=== PATIENT | male | born 1955 | race Caucasian/White ===

== ENCOUNTER 2020-11-16 19:47 | Emergency (ER) | payer MEDICAID, SELFPAY ==
[2020-11-16 19:54] VITALS: PULSE 60; RESP 20; TEMP 36.9; O2SAT 94; BMI 45.1
--- NOTE | 2020-11-16 20:13 | W.ED.MALEGU ---
HPI - Male Genitourinary General: Chief complaint: Urogenital-Male Stated complaint: inability to urinate Time Seen by Provider: 11/16/20 20:03 History of Present Illness: HPI Narrative: Patient comes in saying no urine is come out his Kendall only had 20 mils and back was seen at [facility] Kendall was placed because of humphrey hematuria he is set up for TURP procedure up in [place] awaiting that appointment. Complaint: other (Urinary retention with Kendall in place) Onset (ago): hour(s) Review of Systems Narrative: Patient states his Kendall was not draining : Reports: other (Has a history of acute urinary retention has BPH and has a TURP appointment) [facility] ED PFSH: Medical History (Updated 11/16/20 @ 20:12 by MADHU Liang) CAD (coronary artery disease) CHF (congestive heart failure) Chronic obstructive pulmonary disease Generalized anxiety disorder Lower urinary tract symptoms (LUTS) Major depressive disorder, recurrent, moderate DEISI (obstructive sleep apnea) RLS (restless legs syndrome) Urinary incontinence Surgical History H/O hand surgery Family History Father Cancer Prostate Mother Cancer Lung Social History Smoking and tobacco status: former smoker Quit status (tobacco): has quit using tobacco Second hand smoke exposure: No Alcohol intake: never Lives independently: Yes Household members: spouse Marital status: service: No Pets and animals: Yes History of recent travel: No Current gender identity: Male Physical Exam Const: COMMON NORMALS: no acute distress : MALE GROIN/PERINEUM EXAM: Yes other (Patient has humphrey hematuria when I walked in room he had a full Kendall bag) OTHER: I suspect that he had a blood clot at the end of his catheter Psych: COMMON NORMALS: mental status grossly normal Course Vital Signs: Vital signs: Vital Signs Temperature 98.4 F 11/16/20 19:54 Pulse Rate 60 11/16/20 19:54 Respiratory Rate 20 H 11/16/20 19:54 Pulse Oximetry 94 11/16/20 19:54 MDM - Male MDM Narrative: Medical decision making narrative: Patient and instructed on how to flush Kendall follow-up with urologist as directed Discharge Plan Discharge Patient Disposition: Home Clinical Impression: Acute retention of urine Condition: Stable Prescriptions: No Action hydrocodone-acetaminophen [[place]acada] 10-325 mg tablet 1 tab PO Q4H PRNRF: 0 aspirin 81 mg tablet,delayed release (DR/EC) 81 mg PO DAILY RF: 0 ascorbic acid (vitamin C) 1,000 mg tablet 500 mg PO DAILY RF: 0 furosemide 40 mg tablet 40 mg PO BID RF: 0 lisinopril 20 mg tablet 20 mg PO DAILY RF: 0 carbidopa-levodopa [Sinemet] 10-100 mg tablet 1 tab PO DAILY RF: 0 omeprazole 20 mg capsule,delayed release(DR/EC) 20 mg PO DAILY RF: 0 celecoxib [Celebrex] 200 mg capsule 200 mg PO BID PRN (Reason: pain) RF: 0 albuterol sulfate [Ventolin HFA] 90 mcg/actuation HFA aerosol inhaler 2 puff INHALATION Q6H PRNRF: 0 carvedilol 25 mg tablet 25 mg PO BID RF: 0 potassium chloride 10 mEq capsule, extended release 10 meq PO DAILY RF: 0 levalbuterol tartrate [Xopenex HFA] 45 mcg/actuation HFA aerosol inhaler 2 inh INHALATION Q4H PRN (Reason: shortness of breath or wheezing) RF: 0 tamsulosin 0.4 mg capsule 0.8 mg PO DAILY RF: 0 fluticasone propion-salmeterol [Advair Diskus] 500-50 mcg/dose blister with device 1 inh INHALATION BID RF: 0 albuterol sulfate 2.5 mg /3 mL (0.083 %) solution for nebulization 2.5 mg INHALATION Q6H PRN (Reason: shortness of breath or wheezing) 30 Days Qty: 360 RF: 3 duloxetine [Cymbalta] 60 mg capsule,delayed release(DR/EC) 60 mg PO .AM Qty: 30 RF: 2 duloxetine [Cymbalta] 30 mg capsule,delayed release(DR/EC) 30 mg PO .AM Qty: 30 RF: 2 alprazolam [Xanax] 1 mg tablet 1 mg PO QID PRN (Reason: anxiety) Qty: 120 RF: 2 tiotropium bromide [Spiriva with HandiHaler] 18 mcg capsule, w/inhalation device See Rx Instructions .ROUTE .COMPLEX Qty: 30 RF: 3 Discharge Orders: Discharge ED (Routine); Ordered 11/16/20 Ordered By: Rm Segundo Referrals: Colten Barrientos [Primary Care Provider] - Discharge Diet: Usual diet Discharge Activity: Resume usual activity Patient Instructions: Kendall Catheter Placement and Care (ED) Activity Restrictions/Additional Instructions: Irrigate catheter as needed with syringe and normal saline or water. Keep area clean. Keep appointment [place] for your consult on your procedure. Coding Level of Care Code ED Inside Outside Sales Representative for Raul Tate
[2020-11-16 20:28] VITALS: BP 146/76; PULSE 60; O2SAT 96
[2020-11-16 20:36] VITALS: BP 146/76; PULSE 62; O2SAT 96
== END 2020-11-16 20:48 | disposition home or self-care (01) ==
PROVIDERS: Emergency Provider Nurse Practitioner Family; PCP Physician Assistant Medical
DX: R33.9 Retention of urine, unspecified (principal); Z79.82 Long term (current) use of aspirin; I25.10 Atherosclerotic heart disease of native coronary artery without angina pectoris; I50.9 Heart failure, unspecified; Z87.891 Personal history of nicotine dependence
CPT/HCPCS: 12345; 99283

== ENCOUNTER → 2020-12-25 15:02 | Outpatient (BNVA) | payer MEDICAID, SELFPAY | PROVIDERS: PCP Physician Assistant Medical; Visit Provider Urology | DX: R39.9 Unspecified symptoms and signs involving the genitourinary system (principal); R33.8 Other retention of urine; N39.0 Urinary tract infection, site not specified | CPT/HCPCS: 87077; 87086; 87184; 88112 ==

== ENCOUNTER 2025-04-17 08:13 | Inpatient (IN) | payer MEDICARE, MEDICAID, SELFPAY ==
[2025-04-17] VITALS (19 sets, daily range): BP systolic 143–204; BP diastolic 79–141; PULSE 67–92; RESP 18–28; TEMP 36.7; O2SAT 88–99
--- NOTE | 2025-04-17 08:28 | XRR_ITS ---
PROCEDURE INFORMATION: Exam: XR Chest Exam date and time: 04/17/2025 8:34 AM Age: 70 years old Clinical indication: Cough and dyspnea; Fall 8 days ago has broken RT shoulder; Additional info: Dyspnea/cough TECHNIQUE: Imaging protocol: Radiologic exam of the chest. Views: 1 view. COMPARISON: DX XR chest 2V* [id number] 04/15/2025 9:48 PM FINDINGS: Lungs: Slightly increased pulmonary vascular congestion with diffuse bilateral pulmonary edema. Otherwise, unremarkable. Pleural spaces: Unremarkable. No pleural effusion. No pneumothorax. Heart/Mediastinum: Increased moderate cardiomegaly. Bones/joints: Right humeral head and neck fracture. Nothing else acute. No change. XR/XR chest 1V portable [id number] IMPRESSION: 1. Right humeral head and neck fracture. 2. Increased moderate cardiomegaly. 3. Slightly increased pulmonary vascular congestion with diffuse bilateral pulmonary edema.
--- NOTE | 2025-04-17 08:28 | XRR_ITS ---
PROCEDURE INFORMATION: Exam: XR Right Humerus Exam date and time: 04/17/2025 8:39 AM Age: 70 years old Clinical indication: Injury or trauma; Blunt trauma (contusions or hematomas); Arm, upper; Right; Injury date: Fall 8 days ago TECHNIQUE: Imaging protocol: Radiologic exam of the right humerus. Views: 2 or more views. COMPARISON: [place] [id number] 04/15/2025 10:28 PM FINDINGS: Bones/joints: Comminuted, impacted, and displaced fracture right humeral head and neck. Slightly increased displacement. Otherwise, unremarkable. Soft tissues: Normal. XR/[place] [id number] IMPRESSION: Comminuted, impacted, and displaced fracture right humeral head and neck. Slightly increased displacement.
--- NOTE | 2025-04-17 08:32 | ECG_ITS ---
[facility]: [facility]25-[facility]-17 Pat Name: Woodrow Mcguire Department: Room: Gender: Male Roll Forger: : 1955 Requested By: Don Broussard Order Number: [id number] Rosa Maria MD: Stevie Dominguez M.D. Measurements Intervals [place] Rate: 73 P: 75 VA: 149 QRS: 180 QRSD: 157 T: 24 QT: 407 QTc: 450 Interpretive Statements SINUS RHYTHM RIGHT BUNDLE BRANCH BLOCK AND POSSIBLE RIGHT VENTRICULAR HYPERTROPHY [RBBB, 1.5 mV R IN V1, RAD] LEFT POSTERIOR FASCICULAR BLOCK [QRS AXIS > 109, INFERIOR Q] MARKED T-WAVE ABNORMALITY, CONSIDER ANTEROLATERAL ISCHEMIA [-0.5+ mV T-WAVE IN I/aVL/V3-V6] No previous ECG available for comparison Electronically Signed On 04-17-2025 17:45:09 CDT by Stevie Dominguez M.D. [id number]
--- NOTE | 2025-04-17 08:35 | W.ED.EXTPRO ---
HPI - Extremity Problem General: Chief complaint: Extremity Injury, Upper Stated complaint: Fall, RT Arm Pain Time Seen by Provider: 04/17/25 08:28 History of Present Illness: 62-year-old male presents to the emergency room planing of right arm pain and swelling. He fell 8 days ago he was seen at [facility] and they told him it was fractured. He has a follow-up appointment with Ortho clinic here at [facility] but he is not sure when it is or how to get there. He did not fall again. He is chronically oxygen. He is complaining of persistent pain in the right upper arm is a large amount of bruising denies chest or abdominal pain denies any other injury at the time of fall. Associated symptoms: Deny chest pain, fever(s) or rash Related Data Home Medications ?Medication ?Instructions ?Recorded ?Confirmed albuterol sulfate 90 mcg/actuation 2 puff inhalation Q6H PRN 06/19/20 04/17/25 aerosol inhaler (Ventolin HFA) Shortness Of Breath ascorbic acid (vitamin C) 1,000 mg 1,000 mg PO DAILY 06/19/20 04/17/25 tablet aspirin 81 mg tablet,delayed 81 mg PO DAILY 06/19/20 04/17/25 release carbidopa 10 mg-levodopa 100 mg 1 tab PO DAILY 06/19/20 04/17/25 tablet (Sinemet) carvedilol 25 mg tablet 25 mg PO BID 06/19/20 04/17/25 furosemide 40 mg tablet 40 mg PO BID 06/19/20 04/17/25 lisinopril 20 mg tablet 20 mg PO DAILY 06/19/20 04/17/25 omeprazole 20 mg capsule,delayed 20 mg PO DAILY 06/19/20 04/17/25 release potassium chloride 10 mEq 10 meq PO DAILY 06/19/20 04/17/25 capsule,extended release tamsulosin 0.4 mg capsule 0.4 mg PO DAILY 06/19/20 04/17/25 alprazolam 1 mg tablet (Xanax) 1 mg PO .3-4XDAILY PRN anxiety 04/17/25 04/17/25 clobetasol 0.05 % scalp solution See Rx Instructions .Route .COMPLEX 04/17/25 04/17/25 gabapentin 100 mg capsule 100 mg PO DAILY 04/17/25 04/17/25 hydrocodone 10 mg-acetaminophen 1 tab PO Q4H PRN Pain, Moderate 04/17/25 04/17/25 325 mg tablet naloxone 4 mg/actuation nasal spray See Rx Instructions .Route .COMPLEX 04/17/25 04/17/25 Previous Rx's ?Medication ?Instructions ?Recorded duloxetine 30 mg capsule,delayed 30 mg PO .AM #30 caps 05/09/24 release (Cymbalta) duloxetine 60 mg capsule,delayed 60 mg PO .AM #30 caps 05/09/24 release (Cymbalta) Allergies Allergy/AdvReac Type Severity Reaction Status Date / Time No Known Allergies Allergy Verified 06/19/20 14:22 Review of Systems Const: Denies: fever(s) or chills Card: Denies: chest pain Resp: Denies: dyspnea GI: Denies: abdominal pain : Denies: dysuria, urinary frequency or urinary urgency Musc: Denies: neck pain or back pain Skin/Breast: Denies: rash PFSH ED PFSH: Medical History Chronic use of benzodiazepine for therapeutic purpose Psychiatric care Morbid obesity Incomplete bladder emptying Recurrent UTI Lower urinary tract symptoms (LUTS) DEISI (obstructive sleep apnea) Chronic obstructive pulmonary disease CAD (coronary artery disease) RLS (restless legs syndrome) CHF (congestive heart failure) Urinary incontinence Generalized anxiety disorder Major depressive disorder, recurrent, moderate Surgical History H/O hand surgery Family History Father Cancer Prostate Mother Cancer Lung Social History Smoking and tobacco/nicotine status: former use of tobacco/nicotine Quit status (tobacco/nicotine): has quit using Second hand smoke exposure: No Alcohol intake: never Substance/Drug Use: never Lives independently: Yes Household members: spouse Marital status: service: No Pets and animals: Yes Do you think of yourself as: Straight/Heterosexual Current gender identity: Male Physical Exam Const: GENERAL APPEARANCE: cooperative ORIENTATION/CONSCIOUSNESS: Yes awake HENMT: COMMON NORMALS: normocephalic and atraumatic HEAD & SCALP: normocephalic and atraumatic Resp: EFFORT & INSPECTION: Yes tachypneic, Yes labored and Yes grunting AUSCULTATION: crackles Cardio: COMMON NORMALS: regular rate, regular rhythm and No murmurs present (Cardio) RATE: regular rate RHYTHM: regular rhythm GI: COMMON NORMALS: Soft to palpation and No hepatosplenomegaly present AUSCULTATION: Yes normoactive bowel sounds PALPATION: Yes Soft to palpation, No Tenderness to palpation present (GI), No Guarding due to palpation present (GI) and Yes No hepatosplenomegaly present Extremity: COMMON NORMALS: normal to inspection, capillary refill normal, no clubbing, cyanosis or edema, no calf tenderness and no pedal edema Skin: COMMON NORMALS: no rashes or lesions noted GENERAL SKIN EXAM: no rashes or lesions noted Course Vital Signs: Vital signs: Vital Signs Temperature 98.1 F 04/17/25 08:14 Pulse Rate 72 04/17/25 12:20 Respiratory Rate 23 H 04/17/25 09:27 Blood Pressure 189/105 04/17/25 12:14 Pulse Oximetry 93 04/17/25 12:20 Oxygen Delivery Me thod BiPAP 04/17/25 09:27 Oxygen Flow Rate 2 04/17/25 08:14 Fraction of Inspir ed Oxygen 30 04/17/25 12:20 MDM - Extremity (Nontraumatic) Medical Decision Making Acute on chronic hypercapnic and hypoxic respiratory failure with congestive heart failure patient started on BiPAP diuresed he is encephalopathic from his hypercapnia at times had to be redirected was even threatening violence at times believe it was due to his encephalopathy from his hypercapnia. We were able with the assistance of family members and friends of his able to redirect him will admit. Discussed with hospitalist orders written. EKG shows sinus rhythm right bundle branch block no acute ST changes noted. Inverted T waves in V1 through V5 Medical Records I reviewed the patient's medical records. Lab Data I reviewed the patient's lab results. 04/17/25 08:28 04/17/25 08:28 Radiology Impressions Chest X-Ray 04/17/25 08:28 IMPRESSION: 1. Right humeral head and neck fracture. 2. Increased moderate cardiomegaly. 3. Slightly increased pulmonary vascular congestion with diffuse bilateral pulmonary edema. Humerus X-Ray 04/17/25 08:28 IMPRESSION: Comminuted, impacted, and displaced fracture right humeral head and neck. Slightly increased displacement. Laboratory Results WBC 7.20 10^3/uL (3.29-11.43) 04/17/25 08: RBC 4.62 10^6/uL (3.85-5.65) 04/17/25 08: Hgb 14.30 g/dL (11.27-16.99) 04/17/25 08: Hct 47.3 % (37-53) 04/17/25 08: MCV 102.4 fl (82-101) H 04/17/25 08: MCH 31.0 pg (27-33) 04/17/25 08: MCHC 30.2 g/dL (30-55) 04/17/25 08: RDW 14.4 % (12.1-15.1) 04/17/25 08: Plt Count 167 10^3/cmm (157-399) 04/17/25 08: MPV 10.7 fL (7.4-10.4) H 04/17/25 08:28 Neut % (Auto) 79.7 % 04/17/25 08: Lymph % (Auto) 9.4 % 04/17/25 08: [place] % (Auto) 8.3 % 04/17/25 08: Eos % (Auto) 1.9 % 04/17/25 08: Baso % (Auto) 0.3 % 04/17/25 08: Neut # (Auto) 5.73 10^3/uL (1.8-7.7) 04/17/25 08: Lymph # (Auto) 0.7 10^3/uL (0.8-4.8) L 04/17/25 08: [place] # (Auto) 0.6 10^3/uL (0.2-0.9) 04/17/25 08: Eos # (Auto) 0.1 10^3/uL (0.0-0.8) 04/17/25 08: Baso # (Auto) 0.0 10^3/uL (0.0-0.1) 04/17/25 08: Nucleated RBC % (auto) 0 % 04/17/25 08:28 Nucleated RBCs # 0.0 /100WBC 04/17/25 08:28 Specimen Type Arterial 04/17/25 08:54 Sample Site Radial, left 04/17/25 08:54 ABG pH 7.34 (7.35-7.45) L 04/17/25 08:54 ABG pCO2 76.5 mmHg (35-45) H* 04/17/25 08:54 ABG pO2 82.7 mmHg (80.0-100.0) 04/17/25 08:54 ABG PO2/FiO2 Ratio 295 04/17/25 08:54 ABG HCO3 41.3 mmol/L (22-26) H 04/17/25 08:54 ABG O2 Saturation 96.2 04/17/25 08:54 ABG Base Excess 11.8 mmol/L (-2.0-2.0) H 04/17/25 08:54 Eliud Test Pos 04/17/25 08:54 A-a O2 Gradient 2.9 mmHg (5-10) L 04/17/25 08:54 Hematocrit 44.1 % (42-52) 04/17/25 08:54 Hgb O2 Saturation 93.9 % (95-100) L 04/17/25 08:54 Carboxyhemoglobin 2.4 %THgb (0.4-20.1) 04/17/25 08:54 Methemoglobin 0.0 % (0.4-1.5) L 04/17/25 08:54 Total Hemoglobin 14.4 g/dL (14-18) 04/17/25 08:54 Sodium 140.0 mmol/L (131-143) 04/17/25 08:54 Potassium 4.4 mmol/L (3.5-5.0) 04/17/25 08:54 Glucose 100.0 mg/dL (70-115) 04/17/25 08:54 Ionized Calcium 1.2 mmol/L (1.1-1.4) 04/17/25 08:54 O2 Delivery Device Nc 04/17/25 08:54 O2 Liters/Min 2.0 % 04/17/25 08:54 FiO2 28.0 % 04/17/25 08:54 Food Counselor ID Gd 04/17/25 08:54 Sodium 139 mmol/L (136-145) 04/17/25 08:28 Potassium 4.7 mmol/L (3.5-5.1) 04/17/25 08: Chloride 95 mmol/L (98-107) L 04/17/25 08: Carbon Dioxide 37 mmol/L (22-29) H 04/17/25 08: Anion Gap 11.7 (5-19) 04/17/25 08: BUN 17 mg/dL (8-23) 04/17/25 08: Creatinine 0.6 mg/dL (0.7-1.2) L 04/17/25 08: GFR Calculation 134.0 mL/min (90-130) H 04/17/25 08: Glucose 99 mg/dL (65-115) 04/17/25: Calculated Osmolality 290 mOsm/kg (285-295) 04/17/25: Calcium 8.7 mg/dL (8.5-10.5) 04/17/25: Total Bilirubin 1.1 mg/dL (0.15-1.2) 04/17/25: AST 18 U/L (0-40) 04/17/25: ALT 10 U/L (0-41) 04/17/25 08: Alkaline Phosphatase 65 U/L (40-130) 04/17/25: Creatine Kinase 45 U/L (39-308) 04/17/25 08: Troponin T Baseline 17 ng/L (0-15) H 04/17/25 08: Total Protein 6.5 g/dL (6.6-8.7) L 04/17/25: Albumin 3.6 g/dL (3.5-5.2) 04/17/25 08: Globulin 2.9 g/dL (1.3-4.6) 04/17/25 08: Urine Color Dark yellow (Yellow) A 04/17/25 09:00 Urine Appearance Clear (CLEAR) 04/17/25 09:00 Urine pH 7.5 (5-7) 04/17/25 09:00 Ur Specific [place] 1.027 (1.005-1.030) 04/17/25 09:00 Urine Protein 1+ (Negative) A 04/17/25 09:00 Urine Glucose (UA) Negative (Normal) 04/17/25 09:00 Urine Ketones 2+ (Negative) H 04/17/25 09:00 Urine Blood Negative (Negative) 04/17/25 09:00 Urine Nitrate Negative (Negative) 04/17/25 09:00 Urine Bilirubin Negative (Negative) 04/17/25 09:00 Urine Urobilinogen 1.0 mg/dL (Negative) 04/17/25 09:00 Ur Leukocyte Esterase 1+ (Negative) A 04/17/25 09:00 Urine RBC 0-2 /hpf (0-2) 04/17/25 09:00 Urine WBC 21-50 /hpf (0-5) H 04/17/25 09:00 Ur Squamous Epith Cells 0-5 /hpf (0-5) 04/17/25 09:00 Amorphous Sediment Not Reportable 04/17/25 09:00 Urine Bacteria None seen /hpf (NONE) 04/17/25 09:00 Hyaline Casts 0-4 /lpf H 04/17/25 09:00 All radiology interpretation(s) finalized by discharge Discharge Plan Discharge Patient Disposition: Admitted As Inpatient Admit Provider: Leonidas Sotelo Clinical Impression: Acute respiratory failure with hypoxia and hypercapnia, CHF (congestive heart failure), DEISI (obstructive sleep apnea) Condition: Stable Coding Level of Care Code ED Director Equipment for Raul Tate
[2025-04-17 08:36] LABS: Basophils % 0.3 %; Eosinophils # 0.1 10^3/uL (0.0-0.8); Eosinophils % 1.9 %; Hematocrit 47.3 % (37-53); Lymphocytes # 0.7 10^3/uL (0.8-4.8); Lymphocytes % 9.4 %; Mean Corpuscular HGB Conc 30.2 g/dL (30-55); Mean Corpuscular Volume 102.4 fl (82-101); Mean Platelet Volume 10.7 fL (7.4-10.4); Monocytes # 0.6 10^3/uL (0.2-0.9); Monocytes % 8.3 %; Neutrophils # 5.73 10^3/uL (1.8-7.7); Neutrophils % 79.7 %; Nucleated Red Blood Cells % 0 %; Platelet Count 167 10^3/cmm (157-399); Red Blood Count 4.62 10^6/uL (3.85-5.65); Red Cell Distribution Width 14.4 % (12.1-15.1)
[2025-04-17 08:52] LABS: Troponin(5th) Baseline 17 ng/L (0-15)
[2025-04-17 08:57] LABS: Alanine Aminotransferase 10 U/L (0-41); Albumin Level 3.6 g/dL (3.5-5.2); Alkaline Phosphatase 65 U/L (40-130); Aspartate Amino Transferase 18 U/L (0-40); Blood Urea Nitrogen 17 mg/dL (8-23); Calcium 8.7 mg/dL (8.5-10.5); Carbon Dioxide 37 mmol/L (22-29); Chloride 95 mmol/L (98-107); Creatine Phosphokinase 45 U/L (39-308); Globulin 2.9 g/dL (1.3-4.6); Glucose 99 mg/dL (65-115); Osmolality Calculated 290 mOsm/kg (285-295); Sodium 139 mmol/L (136-145); Total Bilirubin 1.1 mg/dL (0.15-1.2); Total Protein 6.5 g/dL (6.6-8.7)
[2025-04-17 08:58] LABS: Anion Gap 11.7 (5-19); Potassium 4.7 mmol/L (3.5-5.1)
[2025-04-17 09:09] LABS: ABG PH Result 7.34 (7.35-7.45); Alveolar-Arterial Oxygen Gradi 2.9 mmHg (5-10); Arterial Blood Gas Hematocrit 44.1 % (42-52); Base Excess ABG 11.8 mmol/L (-2.0-2.0); Blood Gas Allen Test Pos; Blood Gas Operator Identificat GD; Blood Gas Sample Site Radial, left; Blood Gas Sample Type Arterial; Carboxyhemoglobin 2.4 %THgb (0.4-20.1); HCO3 ABG 41.3 mmol/L (22-26); HGB O2 Sat 93.9 % (95-100); Ionized Calcium Level - ABG 1.2 mmol/L (1.1-1.4); Oxygen Device NC; Oxygen Saturation ABG 96.2; PO2 ABG 82.7 mmHg (80.0-100.0); PO2 FiO2 Ratio Arterial Blood 295; Potassium Level - ABG 4.4 mmol/L (3.5-5.0); Total Hemoglobin 14.4 g/dL (14-18)
[2025-04-17 09:12] LABS: ABG PCO2 76.5 mmHg (35-45)
[2025-04-17] MEDS: ipratropium-albuterol 3 mL Neb INHALATION (09:26)
--- NOTE | 2025-04-17 09:26 | PC.PHAR ---
Pt states he is unsure what medications he takes. [facility] is faxing current med list 04/17/25 9:27am
[2025-04-17] MEDS: methylPREDNISolone sod succ 125 mg/2 mL INJ IVP (09:29)
[2025-04-17 09:30] LABS: Bilirubin Urine Negative (Negative); Blood Urine Negative (Negative); Glucose Urine UA Negative (Normal); Ketones Urine 2+ (Negative); Leukocyte Esterase Urine 1+ (Negative); Nitrate Urine Negative (Negative); Protein Urine 1+ (Negative); Specific Gravity, Urine 1.027 (1.005-1.030); Urine Appearance Clear (CLEAR); Urine Color Dark Yellow (Yellow); pH Urine 7.5 (5-7)
[2025-04-17] MEDS: LORazepam 1 MG/0.5 ML injection IVP (09:31)
[2025-04-17 09:32] LABS: Add Urine Microscopic? YES; Bacteria Urine None Seen /hpf; Hyaline Casts Urine 0-4 /lpf; RBC Urine 0-2 /hpf (0-2); Squamous Epithelial Cell Urine 0-5 /hpf (0-5); WBC Urine 21-50 /hpf (0-5)
[2025-04-17] MEDS: FUROsemide 10 mg/mL SDV 10mL 60 MG IVP (09:32)
[2025-04-17 09:49] LABS: Add Urine Culture? Yes
--- NOTE | 2025-04-17 10:06 | PC.PHAR ---
According to [facility]-pt has a poor history of picking up Sinement 10-100, Carvedilol 25mg, Lasix 40mg and Duloxetine 30mg and 60mg. Last fill dates and day supply added in pharmacy notes.
--- NOTE | 2025-04-17 10:28 | ECG_ITS ---
[facility] Test Date: 2025-04-17 Pat Name: Woodrow Mcguire Department: Room: [facility] Gender: Male Hide And Skin Colerer: : 1955 Requested By: Don Broussard Order Number: [id number] Reading MD: Stevie Dominguez M.D. Measurements Intervals [place] Rate: 71 P: 41 VT: 141 QRS: 173 QRSD: 154 T: 23 QT: 419 QTc: 458 Interpretive Statements SINUS RHYTHM RIGHT BUNDLE BRANCH BLOCK AND POSSIBLE RIGHT VENTRICULAR HYPERTROPHY [RBBB, 1.5 mV R IN V1, RAD] LEFT POSTERIOR FASCICULAR BLOCK [QRS AXIS > 109, INFERIOR Q] MARKED T-WAVE ABNORMALITY, CONSIDER ANTEROLATERAL ISCHEMIA [-0.5+ mV T-WAVE IN I/aVL/V3-V6] Compared to ECG 04/17/2025 08:32:25 No significant changes Electronically Signed On 04-17-2025 17:48:57 CDT by Stevie Dominguez M.D. [id number]
--- NOTE | 2025-04-17 11:00 | PC.NURSE ---
PT BEING LOUD AND CURSING AT STAFF. PT REQUESTING TO LEAVE MULTIPLE TIMES. PT STATES I DIDNT COME TO STAY I WANT TO GO HOME. DR. HOLLAND NOTIFIED OF BEHAVIOR.
[2025-04-17 11:07] LABS: Troponin 5 2HR 15.71 ng/L (0-15)
[2025-04-17 11:08] LABS: Troponin 5 2HR Delta -1.29 ABS# (0-10)
--- NOTE | 2025-04-17 12:11 | PC.NURSE ---
PT YELLING AND CUSSING, NURSE ENTERED ROOM. PT STATES I'M ABOUT TO START BREAKING SHIT BECAUSE I WANT OUT OF HERE! NURSE ASKED IF PT HAD SOMEONE THAT COULD PICK HIM UP, PT STATES YES, MY ! NURSE ASKED PT'S NAME, , CURRENT YEAR, PLACE, AND WHO PRESIDENT IS. PT ANSWERED ALL QUESTIONS CORRECTLY. DR. HOLLAND NOTIFIED THAT PT WANTS TO LEAVE AMA.
[2025-04-17] MEDS: LORazepam 1 MG/0.5 ML injection 2 MG IVP (12:41)
--- NOTE | 2025-04-17 14:28 | ECG_ITS ---
[facility] Date: 2025-04[facility]17 Pat Name: Woodrow Mcguire Department: Room: [facility] Gender: Male Bobbin Coil Winder: : 1955 Requested By: Don Broussard Order Number: [id number] Rosa Maria MD: Stevie Dominguez M.D. Measurements Intervals [place] Rate: 72 P: 72 TN: 151 QRS: 187 QRSD: 156 T: 5 QT: 428 QTc: 470 Interpretive Statements SINUS RHYTHM RIGHT AXIS DEVIATION [QRS AXIS > 100] RIGHT BUNDLE BRANCH BLOCK AND POSSIBLE RIGHT VENTRICULAR HYPERTROPHY [RBBB, 1.5 mV R IN V1, RAD] MARKED T-WAVE ABNORMALITY, CONSIDER ANTEROLATERAL ISCHEMIA [-0.5+ mV T-WAVE IN I/aVL/V3-V6] Compared to ECG 04/17/2025 10:22:29 Right-axis deviation now present Left posterior fascicular block no longer present T-wave abnormality still present Possible ischemia still present Electronically Signed On 04-17-2025 17:47:44 CDT by Stevie Dominguez M.D. [email or web address] [id number]
--- NOTE | 2025-04-17 15:01 | PM.HP ---
Providers/Chief Complaint Admitting Physician: Leonidas Sotelo Primary Care Provider: Nina Stokes MD Chief Complaint: Fall, RT Arm Pain History of Present Illness Woodrow Mcguire is a 70 year old male with a history of COPD and congestive heart failure presented after a recent fall 8 days ago resulting in arm pain and a confirmed broken bone in the arm. The patient was recently released from a hospital in [place] and has been disoriented since then. In ED here his initial complaint was arm pain but he was found to be short of breath and retaining carbon dioxide, with evidence of exacerbation of COPD and congestive heart failure. The patient uses a nasal cannula for oxygen, typically around the clock, and has a portable oxygen unit. There is no report of fever, chills, or increased cough. Has a history of chronic stasis in the legs. 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 He has a history of being non-cooperative and sometimes leaves the hospital against medical advice. He has not been adherent with home respiratory therapies (CPAP/BiPAP) and possibly medications. Mental status changes are noted, likely related to carbon dioxide retention and acidosis. A plan had been made for orthopedic follow-up for the arm fracture on prior hospitalization. He has been having pain but has not been wearing his arm sling. In ER he was initially sterted on BiPAP support afterfinding of lethargy, confusion and hypercapneic respiratory acidosis. The patient is currently full code, with a preference for short-term interventions if needed. 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 Two brothers from methamphetamine-related causes. No regular substance use reported. Review of Systems General: Reports: ROS unobtainable due to mental status Narrative: Somnolent after received Ativan. Medications/Allergies Home Medications ?Medication ?Instructions ?Recorded ?Confirmed ?Last Taken ?Type albuterol sulfate 90 mcg/actuation 2 puff inhalation Q6H PRN 06/19/20 04/17/25 04/16/25 History aerosol inhaler (Ventolin HFA) Shortness Of Breath ascorbic acid (vitamin C) 1,000 mg 1,000 mg PO DAILY 06/19/20 04/17/25 Unknown History tablet aspirin 81 mg tablet,delayed 81 mg PO DAILY 06/19/20 04/17/25 04/17/25 History release carbidopa 10 mg-levodopa 100 mg 1 tab PO DAILY 06/19/20 04/17/25 Unknown History tablet (Sinemet) carvedilol 25 mg tablet 25 mg PO BID 06/19/20 04/17/25 Unknown History furosemide 40 mg tablet 40 mg PO BID 06/19/20 04/17/25 Unknown History lisinopril 20 mg tablet 20 mg PO DAILY 06/19/20 04/17/25 04/17/25 History omeprazole 20 mg capsule,delayed 20 mg PO DAILY 06/19/20 04/17/25 04/17/25 History release potassium chloride 10 mEq 10 meq PO DAILY 06/19/20 04/17/25 04/17/25 History capsule,extended release tamsulosin 0.4 mg capsule 0.4 mg PO DAILY 06/19/20 04/17/25 04/17/25 History duloxetine 30 mg capsule,delayed 30 mg PO .AM #30 caps 05/09/24 04/17/25 Unknown Rx release (Cymbalta) duloxetine 60 mg capsule,delayed 60 mg PO .AM #30 caps 05/09/24 04/17/25 Unknown Rx release (Cymbalta) alprazolam 1 mg tablet (Xanax) 1 mg PO .3-4XDAILY PRN anxiety 04/17/25 04/17/25 04/17/25 History clobetasol 0.05 % scalp solution See Rx Instructions .Route .COMPLEX 04/17/25 04/17/25 Unknown History gabapentin 100 mg capsule 100 mg PO DAILY 04/17/25 04/17/25 04/16/25 History hydrocodone 10 mg-acetaminophen 1 tab PO Q4H PRN Pain, Moderate 04/17/25 04/17/25 04/17/25 History 325 mg tablet naloxone 4 mg/actuation nasal spray See Rx Instructions .Route .COMPLEX 04/17/25 04/17/25 Unknown History Allergies Allergy/AdvReac Type Severity Reaction Status Date / Time No Known Allergies Allergy Verified 06/19/20 14:22 PFSH Acute PFSH: Medical History Chronic use of benzodiazepine for therapeutic purpose Psychiatric care Morbid obesity Incomplete bladder emptying Recurrent UTI Lower urinary tract symptoms (LUTS) DEISI (obstructive sleep apnea) Chronic obstructive pulmonary disease CAD (coronary artery disease) RLS (restless legs syndrome) CHF (congestive heart failure) Urinary incontinence Generalized anxiety disorder Major depressive disorder, recurrent, moderate Surgical History H/O hand surgery Family History Father Cancer Prostate Mother Cancer Lung Social History Smoking and tobacco/nicotine status: former use of tobacco/nicotine Quit status (tobacco/nicotine): has quit using Second hand smoke exposure: No Alcohol intake: never Substance/Drug Use: never Lives independently: Yes Household members: spouse Marital status: service: No Pets and animals: Yes Do you think of yourself as: Straight/Heterosexual Current gender identity: Male Vitals/I&O/Wt Last Vital Signs Temp 98.1 F 04/17/25 08:14 Pulse 72 04/17/25 12:20 Resp 23 H 04/17/25 09:27 BP 189/105 04/17/25 12:14 Pulse Ox 93 04/17/25 12:20 O2 Del Method BiPAP 04/17/25 09:27 O2 Flow Rate 2 04/17/25 08:14 FiO2 30 04/17/25 12:20 Weight last 48 hrs Weight 129.274 kg Physical Exam Narrative: Accompanied by his brother at bedside. Const: GENERAL APPEARANCE: cooperative NUTRITIONAL APPEARANCE: obese ORIENTATION/CONSCIOUSNESS: Yes awake and Yes lethargic OTHER: Waking up to loud voice and painful stimuli. HENMT: COMMON NORMALS: oropharynx normal Neck/C-Spine: COMMON NORMALS: no JVD Resp: COMMON NORMALS: normal respiratory effort and clear to auscultation bilaterally AUSCULTATION: clear to auscultation bilaterally Cardio: COMMON NORMALS: no JVD, regular rhythm, S1 normal heart sound present, S2 normal heart sound present and No murmurs present (Cardio) RHYTHM: regular rhythm HEART SOUNDS: S1 normal heart sound present and S2 normal heart sound present GI: COMMON NORMALS: Normal to inspection, nondistended, normoactive bowel sounds present, Soft to palpation and non-tender PALPATION: Yes Soft to palpation Extremity: COMMON NORMALS: no joint enlargement Neuro: COMMON NORMALS: moves all extremities SENSORIUM/ORIENTATION: Yes alert Skin: COMMON NORMALS: no rashes or lesions noted GENERAL SKIN EXAM: no rashes or lesions noted Data 04/17/25 08:28 04/17/25 08:28 A&P Assessment and plan (1) Acute respiratory failure with hypoxia and hypercapnia: Acute respiratory failure with hypercapnia, acute metabolic encephalopathy due to hypercapnia, requiring BiPAP support in ER. Reviewed vitals, CBC, CMP, UA, troponin, EKG, chest x-ray, ER provider note, discussed with ER provider. Severe COPD exacerbation with hypercapnia. With dyspnea, hypercapnic encephalopathy, respiratory acidosis, productive cough. Patient with known COPD. Non-compliance with CPAP/BiPAP and concern for medications as well. Oxygen therapy is ongoing, so far came off BiPAP, on nasal cannula oxygen. Requesting target saturation of 88-92% to avoid worsening hypercapnia. Initial admission to intensive care unit. - Continue oxygen therapy, titrate to maintain saturation 88-92% - Administer IV corticosteroids (e.g., methylprednisolone), monitor for risk of worsening encephalopathy, hypertension, hypercapnia, hyperglycemia, gastritis. - Provide breathing treatments scheduled and as needed with DuoNeb - Collect sputum culture Acute congestive heart failure exacerbation, type unknown : History of CHF with current evidence of fluid overload contributing to respiratory compromise. With hypercapnia, dyspnea, moderate cardiomegaly on chest x-ray, slightly increased pulmonary vascular congestion with diffuse bilateral pulmonary edema. Mild swelling in legs noted. - Administer IV diuretics (e.g., furosemide), received a dose in the ED, continue 40 mg IV twice daily, reassess volume status, electrolytes, monitor for risk of electrolyte deficiency with IV diuresis. Monitor for risk of RAKESH. Reassess chemistry. - Monitor fluid status and response to therapy (2) Right humeral fracture: Was not wearing his sling, sling and been replaced in ER, but not wearing his sling currently. Appears peripherally uncomfortable for him. Noted mildly displaced comminuted fracture of the proximal right humerus. Bruising and swelling of proximal right arm and chest. Pending orthopedic consultation. Plan Acute metabolic encephalopathy: Acute metabolic encephalopathy with hypercapnic encephalopathy, with exacerbation of COPD, CHF, as well as possible UTI. Treat as above and below. Initial admission to ICU. Assess UDS. UTI: Possible UTI. Ceftriaxone. Follow-up urine culture. 21-50 WBC. PDMP PDMP Reviewed: Not Reviewed Attestations Medical Necessity Statement*: Admission of over 2 midnights anticipated for assessment management of acute respiratory failure with hypercapnia, acute metabolic encephalopathy, possible UTI in a gentleman with right humeral fracture. Coding Level of Care Code Critical Care >/= 30 minutes Critical care time (in minutes): 35 The high probability of a clinically significant, sudden or life threatening deterioration, as referenced in this documentation, required my full and direct attention, intervention and personal management. The critical care time shown is in addition to time spent performing any reported separately billable procedures and includes the following: [x] Data and vital sign review and interpretation [x] Patient assessment, examination and intervention [x] Medication orders and management [x] Patient/Family updates as able [x] Care Coordination and Documentation. Diagnoses Acute respiratory failure with hypoxia and hypercapnia J96.01; J96.02 Right humeral fracture S42.301A
[2025-04-17 15:13] LABS: Troponin 5 6HR 12.09 ng/L (0-15)
[2025-04-17 15:14] LABS: Troponin 5 6HR Delta -4.91 ng/L (0-12)
--- NOTE | 2025-04-17 16:13 | PC.NURSE ---
Arrived from ED, transferred to bed with slide board
[2025-04-17] MEDS: cefTRIAXone 1,000 mg SDV 1000 MG IVP (17:09)
[2025-04-17] MEDS: enoxaparin 40 mg/0.4 mL Syringe SUBCUT (17:09)
[2025-04-17] MEDS: methylPREDNISolone sod succ 40 mg/mL INJ IVP ×2 (17:09→23:30)
--- NOTE | 2025-04-17 17:52 | PM.CONSULT ---
Providers/Reason For Consult Consulting Physician/Specialty*: Hospitalist Reason for Consult*: Right proximal humerus fracture Attending Physician: Leonidas Sotelo Primary Care Provider: Nnia Stokes MD History of Present Illness History of Present Illness Woodrow Mcguire is a 70 year old male sustained a right nondisplaced proximal humerus fracture currently in the ICU. He is on oxygen tried to awaken him he was breathing and snoring did not awaken when we tried to shake his feet. Review of Systems General: Reports: ROS unobtainable due to mental status Narrative: Patient has bruising around the right shoulder. Medications/Allergies Home Medications ?Medication ?Instructions ?Recorded ?Confirmed ?Last Taken ?Type albuterol sulfate 90 mcg/actuation 2 puff inhalation Q6H PRN 06/19/20 04/17/25 04/16/25 History aerosol inhaler (Ventolin HFA) Shortness Of Breath ascorbic acid (vitamin C) 1,000 mg 1,000 mg PO DAILY 06/19/20 04/17/25 Unknown History tablet aspirin 81 mg tablet,delayed 81 mg PO DAILY 06/19/20 04/17/25 04/17/25 History release carbidopa 10 mg-levodopa 100 mg 1 tab PO DAILY 06/19/20 04/17/25 Unknown History tablet (Sinemet) carvedilol 25 mg tablet 25 mg PO BID 06/19/20 04/17/25 Unknown History furosemide 40 mg tablet 40 mg PO BID 06/19/20 04/17/25 Unknown History lisinopril 20 mg tablet 20 mg PO DAILY 06/19/20 04/17/25 04/17/25 History omeprazole 20 mg capsule,delayed 20 mg PO DAILY 06/19/20 04/17/25 04/17/25 History release potassium chloride 10 mEq 10 meq PO DAILY 06/19/20 04/17/25 04/17/25 History capsule,extended release tamsulosin 0.4 mg capsule 0.4 mg PO DAILY 06/19/20 04/17/25 04/17/25 History duloxetine 30 mg capsule,delayed 30 mg PO .AM #30 caps 05/09/24 04/17/25 Unknown Rx release (Cymbalta) duloxetine 60 mg capsule,delayed 60 mg PO .AM #30 caps 05/09/24 04/17/25 Unknown Rx release (Cymbalta) alprazolam 1 mg tablet (Xanax) 1 mg PO .3-4XDAILY PRN anxiety 04/17/25 04/17/25 04/17/25 History clobetasol 0.05 % scalp solution See Rx Instructions .Route .COMPLEX 04/17/25 04/17/25 Unknown History gabapentin 100 mg capsule 100 mg PO DAILY 04/17/25 04/17/25 04/16/25 History hydrocodone 10 mg-acetaminophen 1 tab PO Q4H PRN Pain, Moderate 04/17/25 04/17/25 04/17/25 History 325 mg tablet naloxone 4 mg/actuation nasal spray See Rx Instructions .Route .COMPLEX 04/17/25 04/17/25 Unknown History Allergies Allergy/AdvReac Type Severity Reaction Status Date / Time No Known Allergies Allergy Verified 06/19/20 14:22 Current Medications Generic Name Dose Route Start Last Admin Trade Name Freq PRN Reason Stop Dose Admin Enoxaparin Sodium 40 mg 04/17/25 16:30 04/17/25 17:09 Enoxaparin 40 Mg/0.4 Ml Syringe SUBCUT 40 mg Q24H MANNY Administration Methylprednisolone Sodium Succinate 40 mg 04/17/25 16:30 04/17/25 17:09 Methylprednisolone Sod Succ 40 Mg/Ml Inj IVP 40 mg Q6H MANNY Administration PFSH Acute PFSH: Medical History Chronic use of benzodiazepine for therapeutic purpose Psychiatric care Morbid obesity Incomplete bladder emptying Recurrent UTI Lower urinary tract symptoms (LUTS) DEISI (obstructive sleep apnea) Chronic obstructive pulmonary disease CAD (coronary artery disease) RLS (restless legs syndrome) CHF (congestive heart failure) Urinary incontinence Generalized anxiety disorder Major depressive disorder, recurrent, moderate Surgical History H/O hand surgery Family History Father Cancer Prostate Mother Cancer Lung Social History Smoking and tobacco/nicotine status: former use of tobacco/nicotine Quit status (tobacco/nicotine): has quit using Second hand smoke exposure: No Alcohol intake: never Substance/Drug Use: never Lives independently: Yes Household members: spouse Marital status: service: No Pets and animals: Yes Do you think of yourself as: Straight/Heterosexual Current gender identity: Male Vitals/I&O/Wt Last Vital Signs Temp 98.1 F 04/17/25 08:14 Pulse 72 04/17/25 16:25 Resp 28 H 04/17/25 16:25 BP 173/101 04/17/25 16:25 Pulse Ox 91 04/17/25 16:25 O2 Del Method Nasal Cannula 04/17/25 16:16 O2 Flow Rate 4 04/17/25 16:16 FiO2 30 04/17/25 12:20 Weight last 48 hrs Weight 277 lb Weight 285 lb Physical Exam Narrative: Patient has bruising around the right shoulder otherwise patient was snoring was not arousable. Data 04/17/25 08:28 04/17/25 08:28 A&P Assessment and plan (1) Right humeral fracture: Patient has a right nondisplaced proximal humerus fracture Follow-up Ortho clinic in 2 weeks Sling for comfort PDMP PDMP Reviewed: Not Reviewed Coding Level of Care Code Acute Code for Chg Fwd Diagnoses Other closed nondisplaced fracture of proximal end of right humerus, initial encounter S42.294A Encounter type: initial encounter Humerus Location: proximal Fracture type: closed Fracture alignment: nondisplaced Fracture morphology: other fracture
--- NOTE | 2025-04-17 19:51 | PC.NURSE ---
NPO Patient demanding something to eat, but has existing NPO order. Patient had history of aggression warranting Ativan administration in emergency department and is very demanding in ICU. Currently on Bipap, but was saturating well on nasal cannula prior. Mental status has improved. Contacted Dr Stevenson regarding patient's wish to eat. Received order to allow patient to eat something for supper and to watch saturations closely while eating and for 30 minutes prior.
[2025-04-17 20:16] LABS: Amphetamines Screen Urine Positive (Negative); Barbiturates Screen Urine Negative (Negative); Benzodiazepines Screen Urine Negative (Negative); Cocaine Screen Urine Negative (Negative); Opiate Screen Urine Positive (Negative); PCP Screen Urine Negative (Negative); THC Screen Urine Negative (Negative)
[2025-04-17] MEDS: HYDROcodone-acetaminophen 10-325 mg Tablet 1 TAB PO (21:56)
[2025-04-18] VITALS (37 sets, daily range): BP systolic 120–182; BP diastolic 67–122; PULSE 62–81; RESP 14–24; TEMP 36–36.7; O2SAT 83–99
[2025-04-18] MEDS: ipratropium-albuterol 3 mL Neb INHALATION (01:01)
[2025-04-18 03:14] LABS: Hematocrit 43.5 % (37-53); Lymphocytes # 0.4 10^3/uL (0.8-4.8); Lymphocytes % 7.7 %; Mean Corpuscular HGB Conc 30.8 g/dL (30-55); Mean Corpuscular Hemoglobin 30.3 pg (27-33); Mean Corpuscular Volume 98.4 fl (82-101); Mean Platelet Volume 10.7 fL (7.4-10.4); Monocytes # 0.3 10^3/uL (0.2-0.9); Monocytes % 6.3 %; Neutrophils # 4.32 10^3/uL (1.8-7.7); Neutrophils % 85.6 %; Nucleated Red Blood Cells % 0 %; Platelet Count 165 10^3/cmm (157-399); Red Blood Count 4.42 10^6/uL (3.85-5.65); Red Cell Distribution Width 14.2 % (12.1-15.1); White Blood Count 5.05 10^3/uL (3.29-11.43)
[2025-04-18 03:41] LABS: Alanine Aminotransferase 15 U/L (0-41); Albumin Level 2.9 g/dL (3.5-5.2); Alkaline Phosphatase 61 U/L (40-130); Anion Gap 10.2 (5-19); Aspartate Amino Transferase 25 U/L (0-40); Blood Urea Nitrogen 25 mg/dL (8-23); Calcium 8.6 mg/dL (8.5-10.5); Carbon Dioxide 38 mmol/L (22-29); Chloride 95 mmol/L (98-107); Creatinine Clr Calc Pharmacy 110.6725; Globulin 3.1 g/dL (1.3-4.6); Glucose 173 mg/dL (65-115); Osmolality Calculated 297 mOsm/kg (285-295); Potassium 4.2 mmol/L (3.5-5.1); Sodium 139 mmol/L (136-145); Total Bilirubin 0.8 mg/dL (0.15-1.2)
[2025-04-18] MEDS: methylPREDNISolone sod succ 40 mg/mL INJ IVP ×4 (05:38→23:18)
[2025-04-18] MEDS: duloxetine 30 mg Capsule PO (06:12)
[2025-04-18] MEDS: tamsulosin 0.4 mg Capsule PO (08:34)
[2025-04-18] MEDS: cefTRIAXone 1,000 mg SDV 1000 MG IVP (08:34)
[2025-04-18] MEDS: pantoprazole DR 40 mg Tablet PO (08:34)
[2025-04-18] MEDS: aspirin 81 mg EC Tablet PO (08:34)
[2025-04-18] MEDS: HYDROcodone-acetaminophen 10-325 mg Tablet 1 TAB PO ×3 (08:34→18:37)
--- NOTE | 2025-04-18 13:57 | P.PN_ITS ---
Subjective 2 Subjective: She is feeling significantly better today in terms of his breathing. He is also awake and alert. He states he has limited recollection of his assessment at outside hospital previously were he was assessed by after his fall. Confirmed with him regarding fracture of the proximal right humerus. Discussed with him also regarding acute encephalopathy on presentation yesterday with hypercapnic encephalopathy and respiratory failure. Vitals/I&O/Wt Last Vital Signs Temp 97.6 F 04/18/25 12:00 Pulse 65 04/18/25 12:00 Resp 17 04/18/25 12:00 BP 182/92 04/18/25 12:00 Pulse Ox 97 04/18/25 12:00 O2 Del Method Nasal Cannula 04/18/25 12:00 O2 Flow Rate 4 04/18/25 09:12 FiO2 35 04/18/25 03:53 04/17/25 04/18/25 04/18/25 22:59 06:59 14:59 Intake Total 600 / 600 0 / 600 360 / 360 Output Total 500 / 500 1000 / 1000 Balance 100 / 100 0 / 100 -640 / -640 Weight last 48 hrs Weight 127.459 kg Weight 125.645 kg Weight 129.274 kg Physical Exam 2 Narrative: Accompanied by his brother at bedside. Const: COMMON NORMALS: patient oriented x3 and alert GENERAL APPEARANCE: c ooperative and lethargic NUTRITIONAL APPEARANCE: obese O RIENTATION/CONSCIOUSNESS: Yes awake and Yes lethargic OTHER: Waking up to loud voice and painful stimuli. HENMT: COMMON NORMALS: oropharynx normal Neck/C-Spine: COMMON NORMALS: no JVD Resp: COMMON NORMALS: normal respiratory effort and clear to auscultation bilaterally AUSCULTATION: clear to auscultation bilaterally Cardio: COMMON NORMALS: no JVD, regular rhythm, S1 normal heart sound present, S2 normal heart sound present and No murmurs present (Cardio) RHYTHM: regular rhythm HEART SOUNDS: S1 normal heart sound present and S2 normal heart sound present GI: COMMON NORMALS: Normal to inspection, nondistended, normoactive bowel sounds present, Soft to palpation and non-tender PALPATION: Yes Soft to palpation Extremity: COMMON NORMALS: no joint enlargement and no pedal edema Neuro: COMMON NORMALS: patient oriented x3 and moves all extremities S ENSORIUM/ORIENTATION: Yes alert and Yes lethargic Skin: COMMON NORMALS: no rashes or lesions noted GENERAL SKIN EXAM: no rashes or lesions noted Data 04/18/25 02:56 04/18/25 02:56 Micro: Microbiology 04/17/25 09:00 Urine Culture - Preliminary Urine,Clean Catch A&P Assessment and plan (1) Acute respiratory failure with hypoxia and hypercapnia: Respiratory failure resolved. This morning still with hypoxia requiring 5 L, but able to wean down on oxygen requirement to about 3 L. Discussed with him and his brother as well as nursing staff, avoid hyperoxia, target oxygen saturation 88-92%. Discussed with him also to avoid any substance use that may affect his mental status, think usually take over the outside. Reviewed vitals, CBC, CMP. Severe COPD exacerbation with hypercapnia. With dyspnea, hypercapnic encephalopathy, respiratory acidosis, productive cough. Patient with known COPD. Non-compliance with CPAP/BiPAP and concern for medications as well. Oxygen therapy is ongoing, so far came off BiPAP, on nasal cannula oxygen. Requesting target saturation of 88-92% to avoid worsening hypercapnia. Initial admission to intensive care unit. - Continue oxygen therapy, titrate to maintain saturation 88-92% - Continue IV corticosteroids (e.g., methylprednisolone), monitor for risk of worsening encephalopathy, hypertension, hypercapnia, hyperglycemia, gastritis. - Provide breathing treatments scheduled and as needed with DuoNeb - Collect sputum culture Discussed with nursing and classification case manager. Acute congestive heart failure exacerbation, type unknown : Reviewed intake and output and chemistry. History of CHF with current evidence of fluid overload contributing to respiratory compromise. With hypercapnia, dyspnea, moderate cardiomegaly on chest x-ray, slightly increased pulmonary vascular congestion with diffuse bilateral pulmonary edema. Mild swelling in legs noted. -Continue IV diuretics (e.g., furosemide), received a dose in the ED, continue 40 mg IV twice daily, reassess volume status, electrolytes, monitor for risk of electrolyte deficiency with IV diuresis. Monitor for risk of RAKESH. Reassess chemistry. - Monitor fluid status and response to therapy (2) Right humeral fracture: Reviewed orthopedic note, discussed with Dr. George, discussed with him and his brother will need follow-up in office in 2 weeks, wear sling in the meantime. Was not wearing his sling, sling and been replaced in ER, but not wearing his sling currently. Appears peripherally uncomfortable for him. Noted mildly displaced comminuted fracture of the proximal right humerus. Bruising and swelling of proximal right arm and chest. Pending orthopedic consultation. Plan Acute metabolic encephalopathy: Resolved. He is awake and alert, pleasant, conversant. Oriented. Responding appropriately. Acute metabolic encephalopathy with hypercapnic encephalopathy, with exacerbation of COPD, CHF, as well as possible UTI. Treat as above and below. Initial admission to ICU. Assess UDS. Functional decline: Per discussion with him and his brother during the visit, he has been in for increased risk of fall recently per his brother, is unclear how he fell to cause fracture to his arm, has been having some difficulties with getting around due to the fracture while living at home by himself. Requesting PT, OT assessment. Discussed with case management. Per discussion with him and his brother he would be agreeable to go to SNF if this would benefit him. UTI: Possible UTI. Ceftriaxone. Follow-up urine culture. 21-50 WBC. Methamphetamine use: UDS positive for amphetamine. Discussed with him, he states that he intermittently uses methamphetamine by smoking. Denies any injection use. Discussed with him risks of methamphetamine use including cardiovascular events, encephalopathy, that may lead to respiratory decompensation and other complications. He verbalized understanding, intention to abstain from future use. PDMP PDMP Reviewed: Not Reviewed Attestations 2 Medical Necessity Statement*: Continue admission for assessment management of COPD exacerbation, CHF, functional assessment recently with fall, humeral fracture and a gentleman with functional decline, living by himself. Diagnoses Acute respiratory failure with hypoxia and hypercapnia J96.01; J96.02 Other closed nondisplaced fracture of proximal end of right humerus, initial encounter S42.294A Encounter type: initial encounter Humerus Location: proximal Fracture type: closed Fracture morphology: other fracture Fracture alignment: nondisplaced
[2025-04-18] MEDS: lisinopril 20 mg Tablet PO (15:29)
[2025-04-18] MEDS: FUROsemide 10 mg/mL SDV 4mL 40 MG IVP (15:29)
[2025-04-18] MEDS: gabapentin 100 mg Capsule PO (15:29)
[2025-04-18] MEDS: enoxaparin 40 mg/0.4 mL Syringe SUBCUT (15:30)
[2025-04-19] VITALS (31 sets, daily range): BP systolic 138–187; BP diastolic 69–125; PULSE 60–79; RESP 13–26; TEMP 36.6–36.8; O2SAT 90–97; BMI 45.1
[2025-04-19] MEDS: HYDROcodone-acetaminophen 10-325 mg Tablet 1 TAB PO ×5 (00:31→20:35)
[2025-04-19 05:18] LABS: Hematocrit 42.5 % (37-53); Lymphocytes # 0.3 10^3/uL (0.8-4.8); Lymphocytes % 3.3 %; Mean Corpuscular HGB Conc 30.6 g/dL (30-55); Mean Corpuscular Hemoglobin 30.6 pg (27-33); Mean Platelet Volume 10.7 fL (7.4-10.4); Monocytes # 0.4 10^3/uL (0.2-0.9); Monocytes % 3.9 %; Neutrophils # 9.12 10^3/uL (1.8-7.7); Neutrophils % 92.1 %; Nucleated Red Blood Cells % 0 %; Platelet Count 187 10^3/cmm (157-399); Red Blood Count 4.25 10^6/uL (3.85-5.65); Red Cell Distribution Width 14.3 % (12.1-15.1); White Blood Count 9.91 10^3/uL (3.29-11.43)
[2025-04-19] MEDS: FUROsemide 10 mg/mL SDV 4mL 40 MG IVP ×2 (05:21→15:26)
[2025-04-19] MEDS: methylPREDNISolone sod succ 40 mg/mL INJ IVP ×2 (05:21→10:46)
[2025-04-19] MEDS: duloxetine 30 mg Capsule PO (05:22)
[2025-04-19 05:38] LABS: Anion Gap 7.1 (5-19); Blood Urea Nitrogen 23 mg/dL (8-23); Calcium 8.6 mg/dL (8.5-10.5); Chloride 98 mmol/L (98-107); Glucose 192 mg/dL (65-115); Osmolality Calculated 303 mOsm/kg (285-295); Potassium 4.1 mmol/L (3.5-5.1); Sodium 142 mmol/L (136-145)
[2025-04-19 06:01] LABS: Carbon Dioxide 41 mmol/L (22-29)
[2025-04-19] MEDS: ipratropium-albuterol 3 mL Neb INHALATION ×3 (08:21→19:32)
[2025-04-19] MEDS: aspirin 81 mg EC Tablet PO (08:28)
[2025-04-19] MEDS: gabapentin 100 mg Capsule PO (08:28)
[2025-04-19] MEDS: cefTRIAXone 1,000 mg SDV 1000 MG IVP (08:28)
[2025-04-19] MEDS: lisinopril 20 mg Tablet PO (08:28)
[2025-04-19] MEDS: pantoprazole DR 40 mg Tablet PO (08:28)
[2025-04-19] MEDS: tamsulosin 0.4 mg Capsule PO (08:28)
--- NOTE | 2025-04-19 11:13 | P.PN_ITS ---
Subjective 2 Subjective: Reports he is doing all right today. Breathing has been improving. He worked with PT and OT. Vitals/I&O/Wt Last Vital Signs Temp 98.0 F 04/19/25 08:00 Pulse 60 04/19/25 08:21 Resp 16 04/19/25 08:21 BP 187/93 04/19/25 08:00 Pulse Ox 95 04/19/25 08:21 O2 Del Method Nasal Cannula 04/19/25 08:21 O2 Flow Rate 4 04/19/25 08:21 FiO2 35 04/18/25 03:53 04/18/25 04/19/25 04/19/25 22:59 06:59 14:59 Intake Total 240 / 960 480 / 1440 480 / 480 Output Total 1400 / 2400 500 / 2900 1350 / 1350 Balance -1160 / -1440 -20 / -1460 -870 / -870 Weight last 48 hrs Weight 127.006 kg Weight 127.459 kg Weight 125.645 kg Physical Exam 2 Const: COMMON NORMALS: patient oriented x3 and alert GENERAL APPEARANCE: c ooperative ORIENTATION/CONSCIOUSNESS: Yes awake HENMT: COMMON NORMALS: oropharynx normal Neck/C-Spine: COMMON NORMALS: no JVD Resp: COMMON NORMALS: normal respiratory effort and clear to auscultation bilaterally AUSCULTATION: clear to auscultation bilaterally Cardio: COMMON NORMALS: no JVD, regular rhythm, S1 normal heart sound present, S2 normal heart sound present and No murmurs present (Cardio) RHYTHM: regular rhythm HEART SOUNDS: S1 normal heart sound present and S2 normal heart sound present GI: COMMON NORMALS: Normal to inspection, nondistended, normoactive bowel sounds present, Soft to palpation and non-tender PALPATION: Yes Soft to palpation Extremity: COMMON NORMALS: no joint enlargement and no pedal edema Neuro: COMMON NORMALS: patient oriented x3 and moves all extremities S ENSORIUM/ORIENTATION: Yes alert Skin: COMMON NORMALS: no rashes or lesions noted GENERAL SKIN EXAM: no rashes or lesions noted Data 04/19/25 04:48 04/19/25 04:48 Micro: Microbiology 04/17/25 09:00 Urine Culture - Preliminary Urine,Clean Catch A&P Assessment and plan (1) Acute respiratory failure with hypoxia and hypercapnia: Continue to improve with resolved dyspnea. On 4 L nasal Oxygen. Continue to wean down as tolerated. Reviewed vitals, CBC, chemistry. Discussed with nursing, caseworker intake. Severe COPD exacerbation with hypercapnia. With dyspnea, hypercapnic encephalopathy, respiratory acidosis, productive cough. Patient with known COPD. Non-compliance with CPAP/BiPAP and concern for medications as well. Oxygen therapy is ongoing, so far came off BiPAP, on nasal cannula oxygen. Requesting target saturation of 88-92% to avoid worsening hypercapnia. Initial admission to intensive care unit. - Continue oxygen therapy, titrate to maintain saturation 88-92% - Decrease dose of IV corticosteroids (e.g., methylprednisolone) down to 20 mg every 6 hours, monitor for risk of worsening encephalopathy, hypertension, hypercapnia, hyperglycemia, gastritis. - Provide breathing treatments scheduled and as needed with DuoNeb - Collect sputum culture if provide a sample Acute congestive heart failure exacerbation, type unknown : Getting closer to euvolemia. Continue diuresis. Reassess volume status. Reviewed intake and output and chemistry. Potassium is okay. Check magnesium as well. Recheck chemistry. History of CHF with current evidence of fluid overload contributing to respiratory compromise. With hypercapnia, dyspnea, moderate cardiomegaly on chest x-ray, slightly increased pulmonary vascular congestion with diffuse bilateral pulmonary edema. Mild swelling in legs -Continue IV diuretics (e.g., furosemide), received a dose in the ED, continue 40 mg IV twice daily, reassess volume status, electrolytes, monitor for risk of electrolyte deficiency with IV diuresis. Monitor for risk of RAKESH. Reassess chemistry. - Monitor fluid status and response to therapy (2) Right humeral fracture: Reviewed orthopedic note, discussed with orthopedics. Follow-up in office in 2 weeks, wear sling in the meantime. Has worked with orthopedics. Quad cane provided. Has not managed well at home, family very concerned about him now having more difficulty with arm fracture, with requirement for continuous oxygen. Plan Acute metabolic encephalopathy: Resolved. Functional decline: Per discussion with him and his brother during the visit, he has been in for increased risk of fall recently per his brother, is unclear how he fell to cause fracture to his arm, has been having some difficulties with getting around due to the fracture while living at home by himself. Arrangements underway for longterm admission. UTI: Reviewed urine culture, without growth. Methamphetamine use: Reinforced with him avoidance of amphetamine use. PDMP PDMP Reviewed: Not Reviewed Attestations 2 Medical Necessity Statement*: Continue admission for assessment management of COPD exacerbation, CHF, functional assessment recently with fall, humeral fracture, disposition planning in a gentleman with functional decline, living by himself. Diagnoses Acute respiratory failure with hypoxia and hypercapnia J96.01; J96.02 Other closed nondisplaced fracture of proximal end of right humerus, initial encounter S42.294A Encounter type: initial encounter Humerus Location: proximal Fracture type: closed Fracture morphology: other fracture Fracture alignment: nondisplaced
[2025-04-19] MEDS: amlodipine 5 mg Tablet PO (12:37)
[2025-04-19] MEDS: enoxaparin 40 mg/0.4 mL Syringe SUBCUT (15:32)
[2025-04-19] MEDS: methylPREDNISolone sod succ 40 mg/mL INJ 20 MG IVP ×2 (17:12→23:38)
--- NOTE | 2025-04-19 21:27 | PC.NURSE ---
report given to Sara and pt transferred to 256-1
[2025-04-20] VITALS (11 sets, daily range): BP systolic 138–176; BP diastolic 65–91; PULSE 65–80; RESP 16–19; TEMP 36.6–37; O2SAT 91–96
[2025-04-20] MEDS: HYDROcodone-acetaminophen 10-325 mg Tablet 1 TAB PO ×5 (00:27→21:50)
[2025-04-20] MEDS: methylPREDNISolone sod succ 40 mg/mL INJ 20 MG IVP ×3 (04:14→17:39)
[2025-04-20] MEDS: FUROsemide 10 mg/mL SDV 4mL 40 MG IVP ×2 (04:15→17:39)
[2025-04-20] MEDS: duloxetine 30 mg Capsule PO (04:15)
[2025-04-20 04:44] LABS: Basophils % 0.1 %; Hematocrit 45.9 % (37-53); Lymphocytes # 0.4 10^3/uL (0.8-4.8); Lymphocytes % 3.8 %; Mean Corpuscular HGB Conc 30.5 g/dL (30-55); Mean Corpuscular Hemoglobin 30.5 pg (27-33); Mean Platelet Volume 10.6 fL (7.4-10.4); Monocytes # 0.7 10^3/uL (0.2-0.9); Monocytes % 6.2 %; Neutrophils # 9.73 10^3/uL (1.8-7.7); Neutrophils % 89.3 %; Nucleated Red Blood Cells % 0 %; Platelet Count 192 10^3/cmm (157-399); Red Blood Count 4.59 10^6/uL (3.85-5.65); Red Cell Distribution Width 14.1 % (12.1-15.1); White Blood Count 10.89 10^3/uL (3.29-11.43)
[2025-04-20 05:37] LABS: Anion Gap 11.3 (5-19); Blood Urea Nitrogen 24 mg/dL (8-23); Calcium 8.9 mg/dL (8.5-10.5); Carbon Dioxide 39 mmol/L (22-29); Chloride 94 mmol/L (98-107); Glomerular Filtration Rate 112.1 mL/min (90-130); Glucose 131 mg/dL (65-115); Magnesium 1.9 mg/dL (1.7-2.3); Osmolality Calculated 296 mOsm/kg (285-295); Potassium 4.3 mmol/L (3.5-5.1); Sodium 140 mmol/L (136-145)
[2025-04-20] MEDS: ipratropium-albuterol 3 mL Neb INHALATION (07:59)
[2025-04-20] MEDS: cefTRIAXone 1,000 mg SDV 1000 MG IVP (08:30)
[2025-04-20] MEDS: gabapentin 100 mg Capsule PO (08:30)
[2025-04-20] MEDS: aspirin 81 mg EC Tablet PO (08:30)
[2025-04-20] MEDS: tamsulosin 0.4 mg Capsule PO (08:30)
[2025-04-20] MEDS: amlodipine 5 mg Tablet PO (08:30)
[2025-04-20] MEDS: lisinopril 20 mg Tablet PO (08:30)
[2025-04-20] MEDS: pantoprazole DR 40 mg Tablet PO (08:31)
--- NOTE | 2025-04-20 12:57 | PC.NURSE ---
Patient has hematuria showing in his catheter. Stat lock in place, Patient reports possibly pulling on it when going to the bathroom earlier. Doctor notified will continue to monitor for clots and decreased urine output.
--- NOTE | 2025-04-20 14:02 | PC.SOCIAL ---
IMM Updated Updated pt on IMM. No questions voiced. Provided pt a copy. Initialed, dated, & timed a copy & placed in chart.
[2025-04-20] MEDS: enoxaparin 40 mg/0.4 mL Syringe SUBCUT (17:38)
--- NOTE | 2025-04-20 18:54 | P.PN_ITS ---
Subjective 2 Subjective: Overall breathing is improving. Pain under control. He did not seem to remember me initially. Vitals/I&O/Wt Last Vital Signs Temp 98.4 F 04/20/25 17:00 Pulse 72 04/20/25 17:00 Resp 19 H 04/20/25 17:00 BP 145/82 04/20/25 17:00 Pulse Ox 92 04/20/25 17:00 O2 Del Method Nasal Cannula 04/20/25 17:00 O2 Flow Rate 2.5 04/20/25 14:25 FiO2 35 04/18/25 03:53 04/20/25 04/20/25 04/20/25 06:59 14:59 22:59 Intake Total 550 / 1750 720 / 720 480 / 1200 Output Total 1000 / 1000 600 / 1600 Balance 550 / -1200 -280 / -280 -120 / -400 Weight last 48 hrs Weight 127.006 kg Weight 127.006 kg Weight 127.006 kg Physical Exam 2 Narrative: Accompanied by his brother at bedside. Const: COMMON NORMALS: patient oriented x3 and alert GENERAL APPEARANCE: c ooperative and lethargic NUTRITIONAL APPEARANCE: obese O RIENTATION/CONSCIOUSNESS: Yes awake and Yes lethargic OTHER: Waking up to loud voice and painful stimuli. HENMT: COMMON NORMALS: oropharynx normal Neck/C-Spine: COMMON NORMALS: no JVD Resp: COMMON NORMALS: normal respiratory effort and clear to auscultation bilaterally AUSCULTATION: clear to auscultation bilaterally Cardio: COMMON NORMALS: no JVD, regular rhythm, S1 normal heart sound present, S2 normal heart sound present and No murmurs present (Cardio) RHYTHM: regular rhythm HEART SOUNDS: S1 normal heart sound present and S2 normal heart sound present GI: COMMON NORMALS: Normal to inspection, nondistended, normoactive bowel sounds present, Soft to palpation and non-tender PALPATION: Yes Soft to palpation Extremity: COMMON NORMALS: no joint enlargement and no pedal edema Neuro: COMMON NORMALS: patient oriented x3 and moves all extremities S ENSORIUM/ORIENTATION: Yes alert and Yes lethargic Skin: COMMON NORMALS: no rashes or lesions noted GENERAL SKIN EXAM: no rashes or lesions noted Data 04/20/25 04:31 04/20/25 04:31 Micro: Microbiology 04/17/25 09:00 Urine Culture - Final Urine,Clean Catch A&P Assessment and plan (1) Acute respiratory failure with hypoxia and hypercapnia: Continues to improve with resolved dyspnea. Oxygen requirement decreasing down to 2-1/2 L. Reviewed vitals, CBC, chemistry. Discussed with nursing, case finishing machine adjuster. Severe COPD exacerbation with hypercapnia. Decrease IV steroids frequency to every 8 hours. Monitor for hypertension, hyperglycemia risk, encephalopathy. Did seem to not remember me at first. Continue to wean down as tolerated. On admit with dyspnea, hypercapnic encephalopathy, respiratory acidosis, productive cough. Patient with known COPD. Non-compliance with CPAP/BiPAP and concern for medications as well. Oxygen therapy is ongoing, so far came off BiPAP, on nasal cannula oxygen. Requesting target saturation of 88-92% to avoid worsening hypercapnia. - Continue oxygen therapy, titrate to maintain saturation 88-92% - Provide breathing treatments scheduled and as needed with DuoNeb - Collect sputum culture if provide a sample Acute congestive heart failure exacerbation, type unknown : Getting closer to euvolemia. Continue diuresis, reassess chemistry with risk of electrolyte deficiency, RAKESH. Reassess volume status. Reviewed intake and output and chemistry. Potassium is okay. Reviewed magnesium as well. Recheck chemistry. Assess TTE. History of CHF with current evidence of fluid overload contributing to respiratory compromise. With hypercapnia, dyspnea, moderate cardiomegaly on chest x-ray, slightly increased pulmonary vascular congestion with diffuse bilateral pulmonary edema. Mild swelling in legs - Monitor fluid status and response to therapy (2) Right humeral fracture: Reviewed orthopedic note, discussed with orthopedics. Follow-up in office in 2 weeks, wear sling in the meantime. Has worked with orthopedics. Quad cane provided. Has not managed well at home, family very concerned about him now having more difficulty with arm fracture, with requirement for continuous oxygen. Pending level 2 approval for rehabilitation at SNF. Plan Acute metabolic encephalopathy: Resolved. Functional decline: Per discussion with him and his brother during the visit, he has been in for increased risk of fall recently per his brother, is unclear how he fell to cause fracture to his arm, has been having some difficulties with getting around due to the fracture while living at home by himself. Arrangements underway for prison admission. UTI: Reviewed urine culture, without growth. Methamphetamine use: Reinforced with him avoidance of amphetamine use. PDMP PDMP Reviewed: Not Reviewed Attestations 2 Medical Necessity Statement*: Continue admission for assessment management of COPD exacerbation, CHF, functional assessment recently with fall, humeral fracture, disposition planning in a gentleman with functional decline, living by himself. and High MDM includes amount and/or complexity of data reviewed/ordered [ resulted lab(s)/test(s), ordered lab(s)/test(s) and other healthcare professional discussion] and described risk of complication, morbidity or mortality of management as documented Diagnoses Acute respiratory failure with hypoxia and hypercapnia J96.01; J96.02 Other closed nondisplaced fracture of proximal end of right humerus, initial encounter S42.294A Encounter type: initial encounter Humerus Location: proximal Fracture type: closed Fracture morphology: other fracture Fracture alignment: nondisplaced
[2025-04-21] VITALS (12 sets, daily range): BP systolic 122–190; BP diastolic 74–96; PULSE 62–67; RESP 15–18; TEMP 36.4–37; O2SAT 90–99
[2025-04-21] MEDS: methylPREDNISolone sod succ 40 mg/mL INJ 20 MG IVP ×3 (02:31→16:59)
[2025-04-21] MEDS: FUROsemide 10 mg/mL SDV 4mL 40 MG IVP ×2 (04:05→16:59)
[2025-04-21 05:51] LABS: Basophils % 0.1 %; Hematocrit 48.5 % (37-53); Lymphocytes # 0.5 10^3/uL (0.8-4.8); Lymphocytes % 4.3 %; Mean Corpuscular HGB Conc 30.3 g/dL (30-55); Mean Corpuscular Hemoglobin 30.5 pg (27-33); Mean Corpuscular Volume 100.6 fl (82-101); Mean Platelet Volume 10.8 fL (7.4-10.4); Monocytes # 0.6 10^3/uL (0.2-0.9); Monocytes % 5.8 %; Neutrophils # 9.33 10^3/uL (1.8-7.7); Neutrophils % 89.1 %; Nucleated Red Blood Cells % 0 %; Platelet Count 201 10^3/cmm (157-399); Red Blood Count 4.82 10^6/uL (3.85-5.65); Red Cell Distribution Width 14.1 % (12.1-15.1); White Blood Count 10.47 10^3/uL (3.29-11.43)
[2025-04-21] MEDS: duloxetine 30 mg Capsule PO (05:52)
[2025-04-21] MEDS: HYDROcodone-acetaminophen 10-325 mg Tablet 1 TAB PO ×2 (05:52→23:52)
[2025-04-21 06:12] LABS: Anion Gap 8.4 (5-19); Blood Urea Nitrogen 27 mg/dL (8-23); Calcium 8.9 mg/dL (8.5-10.5); Chloride 93 mmol/L (98-107); Glucose 126 mg/dL (65-115); Osmolality Calculated 297 mOsm/kg (285-295); Potassium 4.4 mmol/L (3.5-5.1); Sodium 140 mmol/L (136-145)
[2025-04-21 06:18] LABS: Carbon Dioxide 43 mmol/L (22-29)
[2025-04-21] MEDS: ipratropium-albuterol 3 mL Neb INHALATION ×3 (07:30→20:41)
[2025-04-21] MEDS: amlodipine 5 mg Tablet PO (09:02)
[2025-04-21] MEDS: pantoprazole DR 40 mg Tablet PO (09:02)
[2025-04-21] MEDS: tamsulosin 0.4 mg Capsule PO (09:02)
[2025-04-21] MEDS: cefTRIAXone 1,000 mg SDV 1000 MG IVP (09:03)
[2025-04-21] MEDS: gabapentin 100 mg Capsule PO (09:03)
[2025-04-21] MEDS: lisinopril 20 mg Tablet PO (09:03)
[2025-04-21] MEDS: aspirin 81 mg EC Tablet PO (09:03)
--- NOTE | 2025-04-21 14:42 | P.PN_ITS ---
Subjective 2 Subjective: 70-year-old male was recently in [place] where he broke his arm and was at a hospital in [place] he was released from there and confused with CO2 retention, COPD, CHF, cardiomegaly and history of methamphetamine abuse. He tested positive here on 04/17/2025 for amphetamine initially stating that he was a user years ago then admitted to use 2 months ago then on further discussion states he did use prior to his admission and [place] but none in between admission and. I counseled him that amphetamines test positive longer but methamphetamines specifically test positive for about 4 days for methamphetamines but potentially longer for amphetamines which now fits the story better Counseled the patient that he has cardiomegaly and that I have ordered an echocardiogram. The patient states he has had echocardiograms before but could not recall that he had one done today. It took that technical translator calling me before we knew that he actually already had 1 just earlier this morning Patient states he cannot take care of himself with his broken arm and will need to be at the detention until his arm heals or he is fixed. Additionally he states his also does methamphetamines when he does methamphetamines. Patient was seen by Dr. Dhillon and is not clear if this is nonoperative but looks to be nonoperative and probably operation only if it is not healed on follow-up in orthopedic clinic in 2 weeks. Vitals/I&O/Wt Last Vital Signs Temp 98.0 F 04/21/25 11:31 Pulse 66 04/21/25 13:52 Resp 18 04/21/25 13:45 BP 159/90 04/21/25 11:31 Pulse Ox 92 04/21/25 13:45 O2 Del Method Nasal Cannula 04/21/25 13:45 O2 Flow Rate 2.5 04/21/25 13:45 FiO2 35 04/18/25 03:53 04/20/25 04/21/25 04/21/25 22:59 06:59 14:59 Intake Total 480 / 1200 560 / 1760 480 / 480 Output Total 600 / 1600 1800 / 3400 1800 / 1800 Balance -120 / -400 -1240 / -1640 -1320 / -1320 Weight last 48 hrs Weight 127.006 kg Weight 127.006 kg Weight 127.006 kg Physical Exam 2 Narrative: General well-developed morbidly obese male minimally short of breath getting nebulizer treatment CV regular rate and rhythm Lungs clear to auscultation bilaterally Abdomen positive bowel sounds soft Data 04/21/25 05:00 04/21/25 05:00 A&P Assessment and plan (1) Acute respiratory failure with hypoxia and hypercapnia: ABG on admission pH 7.34 pCO2 76.5 PO2 82.7 04/17/2025. Patient's airway is Mallampati 3. He is morbidly obese has cardiomegaly from history of alcohol abuse and more recently methamphetamine abuse. Echocardiogram has been done. I think he has multifactorial CO2 retention from COPD, sleep apnea, possibly drug- induced delirium. Patient is doing okay now on judicious use of oxygen to keep O2 sats in the 90 range. He received DuoNebs just before I arrived. Echocardiogram report is pending. Patient is chronically on oxygen at home. Outpatient medication regimen includes Xanax 1 mg 3-4 times a day, carbidopa levodopa, hydrocodone 10?3 25 1 p.o. every 4 hours as needed pain, Cymbalta, gabapentin to name the sedating meds. He is also on furosemide and carvedilol presumably for heart failure. pounds His weight has been documented as 127.4 kg down to 127.0 but I do not see more frequent test looks like weights have been just brought for (2) Right humeral fracture: Reviewed orthopedic note, discussed with orthopedics. Follow-up in office in 2 weeks, wear sling in the meantime. Has worked with orthopedics. Quad cane provided. Has not managed well at home, family very concerned about him now having more difficulty with arm fracture, with requirement for continuous oxygen. Pending level 2 approval for rehabilitation at SNF. (3) Methamphetamine abuse: Discussed need to stop methamphetamine use due to cardiomegaly and presumably heart failure. repeat echo pending a day (4) CHF (congestive heart failure): Will resume carvedilol. Heart rate is pretty slow already at 60-67 so we will start at 6.25 mg twice a day instead of the 25 mg twice a day that he takes at home (5) DEISI (obstructive sleep apnea): Continue with BiPAP and urged patient to use his CPAP at home (6) Morbid obesity: Carb controlled weight loss diet 2000 quique daily. Need for weight loss was discussed with the patient as he has heart failure Plan Acute metabolic encephalopathy: Resolved. It is apparent that the patient is an ongoing methamphetamine user and we reached communication and patient is interested in stopping methamphetamines and states that he will also speak to his about her concomitantly stopping PDMP PDMP Reviewed: Not Reviewed Attestations 2 Medical Necessity Statement*: Additional 1-2 midnights in the hospital for diuresis and titration of medications prior to discharge to the residential facility. Coding Level of Care Code 15412 Diagnoses Acute respiratory failure with hypoxia and hypercapnia J96.01; J96.02 Other closed nondisplaced fracture of proximal end of right humerus, initial encounter S42.294A Encounter type: initial encounter Humerus Location: proximal Fracture type: closed Fracture morphology: other fracture Fracture alignment: nondisplaced Methamphetamine abuse F15.10 CHF (congestive heart failure) I50.9 DEISI (obstructive sleep apnea) G47.33 Morbid obesity E66.01 Time Spent (min) 45
[2025-04-21] MEDS: enoxaparin 40 mg/0.4 mL Syringe SUBCUT (16:59)
[2025-04-21] MEDS: spironolactone 25 mg Tablet PO (17:00)
[2025-04-21] MEDS: carvedilol 6.25 mg Tablet PO (17:00)
--- NOTE | 2025-04-21 19:13 | USCV_ITS ---
AugustaWoodrow richards Age: 70 Gender: M : 1955 Exam Date: 04/21/2025 08:30 Ordering Phys: Leonidas Sotelo MD Technologist: Chris Lagos [place] [facility] [place]: chf BP: 190 / 96 HR: 76 Rhythm: Sinus Technical Quality: Adequate MEASUREMENTS (Male / Female) Normal Values 2D ECHO LV Diastolic Diameter PLAX 4.6 cm 4.2 - 5.9 / 3.9 - 5.3 cm IVS Diastolic Thickness 1.6 cm 0.6 - 1.0 / 0.6 - 0.9 cm IVS Systolic Thickness 1.9 cm LVPW Diastolic Thickness 2.0 cm 0.6 - 1.0 / 0.6 - 0.9 cm LVPW Systolic Thickness 2.5 cm LVOT Diameter 2.0 cm LV Ejection Fraction 2D Teich 72.1 % LV Ejection Fraction MOD 4C 52.2 % LV Ejection Fraction MOD 2C 65.7 % LV Ejection Fraction 2C AL 70.4 % LA Diameter 3.5 cm RA Systolic Volume 4C AL 68.3 ml RA Systolic Volume 4C MOD 66.7 ml LA Sys Volume AL 66.0 cm cubed LA Sys Volume Index AL 26.4 cm cubed/m squared Aorta at Sinotubular Diameter 2.2 cm IVC Diameter 1.7 cm M-MODE LA Ao Ratio MM 1.8 AV Cusp Separation MM 2.1 cm DOPPLER AV Peak Velocity 206.0 cm/s LVOT Peak Velocity 164.0 cm/s AV Area Cont Eq vti 2.9 cm squared AV Area Cont Eq pk 2.5 cm squared MV Peak Velocity 125.0 cm/s MV Area PHT 5.2 cm squared Mitral E to A Ratio 0.9 TV Peak Velocity 227.5 cm/s TR Peak Velocity 243.0 cm/s TR Peak Gradient 23.6 mmHg TR Mean Velocity 200.0 cm/s TR Mean Gradient 17.1 mmHg TR Velocity Time Integral 51.9 cm PV Peak Velocity 163.0 cm/s RV Ejection Time 0.3 s FINDINGS Left Ventricle Normal left ventricular size, systolic function and wall thickness, with no regional wall motion abnormalities. Left ventricular ejection fraction is estimated at 60 %. Grade I/IV diastolic dysfunction (abnormal relaxation filling pattern), normal to mildly elevated filling pressures. Right Ventricle The right ventricle is normal in size and function. Right Atrium The right atrium is normal in size. Left Atrium The left atrium is normal in size. Mitral Valve Mildly thickened mitral valve. No mitral valve stenosis. Trace mitral valve regurgitation. Aortic Valve Mild aortic valve calcification. No aortic valve stenosis. Trace aortic valve regurgitation. Tricuspid Valve Structurally normal tricuspid valve without significant stenosis or regurgitation. Pulmonary artery systolic pressure is normal. Pulmonic Valve [id number] pulmonary valve regurgitation. Pericardium Normal pericardium without effusion. Aorta Normal ascending aorta dimension. IVC The inferior vena cava appears normal. CONCLUSIONS Normal left ventricular size, systolic function and wall thickness, with no regional wall motion abnormalities. Left ventricular ejection fraction is estimated at 60 %. Grade I/IV diastolic dysfunction (abnormal relaxation filling pattern), normal to mildly elevated filling pressures. [id number] pulmonary valve regurgitation. Mild aortic valve calcification. No aortic valve stenosis. Trace aortic valve regurgitation. There is no pericardial effusion. Right atrial pressure is around 5 mm of mercury. Rosales Michael MD (Electronically Signed) Final Date: 22 Apr 2025 12:46 S
[2025-04-22] VITALS (8 sets, daily range): BP systolic 134–165; BP diastolic 77–90; PULSE 64–99; RESP 16–20; TEMP 36.3–36.8; O2SAT 88–94
[2025-04-22] MEDS: methylPREDNISolone sod succ 40 mg/mL INJ 20 MG IVP ×3 (03:02→17:45)
[2025-04-22] MEDS: FUROsemide 10 mg/mL SDV 4mL 40 MG IVP (03:02)
[2025-04-22 04:33] LABS: Anion Gap 7.6 (5-19); Blood Urea Nitrogen 35 mg/dL (8-23); Calcium 9.1 mg/dL (8.5-10.5); Chloride 94 mmol/L (98-107); Glucose 134 mg/dL (65-115); Osmolality Calculated 302 mOsm/kg (285-295); Potassium 4.6 mmol/L (3.5-5.1); Sodium 141 mmol/L (136-145)
[2025-04-22 04:40] LABS: Carbon Dioxide 44 mmol/L (22-29)
[2025-04-22] MEDS: duloxetine 30 mg Capsule PO (05:29)
[2025-04-22] MEDS: HYDROcodone-acetaminophen 10-325 mg Tablet 1 TAB PO ×3 (05:32→20:01)
[2025-04-22] MEDS: ipratropium-albuterol 3 mL Neb INHALATION ×2 (08:25→20:33)
[2025-04-22] MEDS: cefTRIAXone 1,000 mg SDV 1000 MG IVP (09:33)
[2025-04-22] MEDS: aspirin 81 mg EC Tablet PO (09:34)
[2025-04-22] MEDS: carvedilol 6.25 mg Tablet PO ×2 (09:34→17:45)
[2025-04-22] MEDS: pantoprazole DR 40 mg Tablet PO (09:34)
[2025-04-22] MEDS: amlodipine 5 mg Tablet PO (09:34)
[2025-04-22] MEDS: potassium chloride ER 20 mEq Tablet PO (09:34)
[2025-04-22] MEDS: lisinopril 20 mg Tablet PO ×2 (09:34→17:45)
[2025-04-22] MEDS: tamsulosin 0.4 mg Capsule PO (09:34)
[2025-04-22] MEDS: gabapentin 100 mg Capsule PO (09:34)
[2025-04-22] MEDS: spironolactone 25 mg Tablet PO ×2 (09:37→17:45)
--- NOTE | 2025-04-22 15:54 | P.PN_ITS ---
Subjective 2 Subjective: 70-year-old male with history of methamphetamine use has echocardiogram back showing preserved EF of 60% and his labs are showing contraction alkalosis. Patient yesterday admitted to ongoing methamphetamine use and states he is talk with his and brother John who is also on the phone with us today. John is his younger brother and is an RN. Patient states he is going to be open about his methamphetamine use and try to get clean. He is also interested weight loss which I have encouraged See yesterday's note for summary of presenting history and recent history Vitals/I&O/Wt Last Vital Signs Temp 97.7 F 04/22/25 11:39 Pulse 64 04/22/25 11:39 Resp 18 04/22/25 11:39 BP 160/89 04/22/25 11:39 Pulse Ox 90 04/22/25 11:39 O2 Del Method Nasal Cannula 04/22/25 11:39 O2 Flow Rate 2 04/22/25 08:00 FiO2 35 04/18/25 03:53 04/22/25 04/22/25 04/22/25 06:59 14:59 22:59 Intake Total 720 / 720 Output Total 5 / 4800 400 / 400 Balance -5 / -3600 320 / 320 Weight last 48 hrs Weight 125.69 kg Weight 127.006 kg Physical Exam 2 Narrative: General well-developed morbidly obese male minimally short of breath getting nebulizer treatment CV regular rate and rhythm Lungs clear to auscultation bilaterally Abdomen positive bowel sounds soft Data 04/21/25 05:00 04/22/25 02:44 A&P Assessment and plan (1) Acute respiratory failure with hypoxia and hypercapnia: ABG on admission pH 7.34 pCO2 76.5 PO2 82.7 04/17/2025. Patient's airway is Mallampati 3. He is morbidly obese has cardiomegaly from history of alcohol abuse and more recently methamphetamine abuse. Echocardiogram has been done. I think he has multifactorial CO2 retention from COPD, sleep apnea, possibly drug- induced delirium. Patient is doing okay now on judicious use of oxygen to keep O2 sats in the 90 range. He received DuoNebs just before I arrived. Echocardiogram report is pending. Patient is chronically on oxygen at home. Outpatient medication regimen includes Xanax 1 mg 3-4 times a day, carbidopa levodopa, hydrocodone 10?3 25 1 p.o. every 4 hours as needed pain, Cymbalta, gabapentin to name the sedating meds. He is also on furosemide and carvedilol presumably for heart failure. pounds His weight has been documented as 127.4 kg down to 125.69 kg. Changed to oral furosemide 40 mg daily from 40 mg IV furosemide twice a day. Decrease potassium replacement. Repeat BMP in the morning (2) Right humeral fracture: Reviewed orthopedic note, discussed with orthopedics. Follow-up in office in 2 weeks, wear sling in the meantime. Has worked with orthopedics. Quad cane provided. Has not managed well at home, family very concerned about him now having more difficulty with arm fracture, with requirement for continuous oxygen. Pending level 2 approval for rehabilitation at SNF. (3) Methamphetamine abuse: Discussed need to stop methamphetamine use due to cardiomegaly and presumably heart failure. Echo showed preserved LVEF of 60% (4) CHF (congestive heart failure): Will resume carvedilol. Heart rate is pretty slow already at 60-67 so we will start at 6.25 mg twice a day instead of the 25 mg twice a day that he takes at home Seems like this will be manageable with preserved EF. Start losartan for blood pressure (5) DEISI (obstructive sleep apnea): Continue with BiPAP and urged patient to use his CPAP at home (6) Morbid obesity: Carb controlled weight loss diet 2000 quique daily. Need for weight loss was discussed with the patient as he has heart failure Plan Patient spoke with his and brother about his methamphetamine use as well as 's methamphetamine use. They are going to try and get clean. Brother is an RN was on speaker phone with us today and is supportive PDMP PDMP Reviewed: Not Reviewed Attestations 2 Medical Necessity Statement*: 35 minutes spent in evaluation coronatio n of care for this patient today he remains in the hospital additional midnight for acceptance at group home facility and is unable to be discharged safely at this time Coding Level of Care Code 26503 Diagnoses Acute respiratory failure with hypoxia and hypercapnia J96.01; J96.02 Other closed nondisplaced fracture of proximal end of right humerus, initial encounter S42.294A Encounter type: initial encounter Humerus Location: proximal Fracture type: closed Fracture morphology: other fracture Fracture alignment: nondisplaced Methamphetamine abuse F15.10 CHF (congestive heart failure) I50.9 DEISI (obstructive sleep apnea) G47.33 Morbid obesity E66.01 Time Spent (min) 35
[2025-04-22] MEDS: enoxaparin 40 mg/0.4 mL Syringe SUBCUT (17:45)
[2025-04-23] VITALS: BP 159/79; PULSE 65; RESP 18; TEMP 36.7; O2SAT 92
[2025-04-23] MEDS: HYDROcodone-acetaminophen 10-325 mg Tablet 1 TAB PO ×3 (01:57→17:41)
[2025-04-23] MEDS: methylPREDNISolone sod succ 40 mg/mL INJ 20 MG IVP ×2 (01:57→09:50)
[2025-04-23 04:00] VITALS: BP 154/93; PULSE 65; RESP 19; TEMP 36.6; O2SAT 90
[2025-04-23 05:48] LABS: Blood Urea Nitrogen 35 mg/dL (8-23); Calcium 8.6 mg/dL (8.5-10.5); Carbon Dioxide 35 mmol/L (22-29); Chloride 98 mmol/L (98-107); Creatinine Clr Calc Pharmacy 111.9655; Glucose 203 mg/dL (65-115); Magnesium 2.2 mg/dL (1.7-2.3); Osmolality Calculated 304 mOsm/kg (285-295); Sodium 140 mmol/L (136-145)
[2025-04-23] MEDS: duloxetine 30 mg Capsule PO (06:01)
[2025-04-23 07:28] VITALS: BP 167/82; PULSE 55; RESP 16; O2SAT 95
--- NOTE | 2025-04-23 08:30 | PC.SOCIAL ---
IMM Update Pg. 2 of IMM updated. Copy provided at bedside.
[2025-04-23] MEDS: carvedilol 6.25 mg Tablet PO ×2 (09:49→17:41)
[2025-04-23] MEDS: aspirin 81 mg EC Tablet PO (09:49)
[2025-04-23] MEDS: tamsulosin 0.4 mg Capsule PO (09:49)
[2025-04-23] MEDS: pantoprazole DR 40 mg Tablet PO (09:49)
[2025-04-23] MEDS: potassium chloride ER 20 mEq Tablet 10 MEQ PO (09:49)
[2025-04-23] MEDS: spironolactone 25 mg Tablet PO ×2 (09:50→17:41)
[2025-04-23] MEDS: FUROsemide 40 mg Tablet PO (09:50)
[2025-04-23] MEDS: amlodipine 5 mg Tablet PO (09:50)
[2025-04-23] MEDS: cefTRIAXone 1,000 mg SDV 1000 MG IVP (09:50)
[2025-04-23] MEDS: gabapentin 100 mg Capsule PO (09:50)
[2025-04-23] MEDS: lisinopril 20 mg Tablet PO ×2 (09:50→17:41)
[2025-04-23 11:12] VITALS: BP 166/86; PULSE 59; RESP 17; TEMP 36.7; O2SAT 97
--- NOTE | 2025-04-23 15:13 | P.PN_ITS ---
Subjective 2 Subjective: No acute interim events. Patient denies any new complaints. Medications: Reviewed: Yes Vitals/I&O/Wt Last Vital Signs Temp 98.1 F 04/23/25 11:12 Pulse 59 L 04/23/25 11:12 Resp 17 04/23/25 11:12 BP 166/86 04/23/25 11:12 Pulse Ox 97 04/23/25 11:12 O2 Del Method Nasal Cannula 04/23/25 11:12 O2 Flow Rate 2 04/23/25 08:00 FiO2 35 04/18/25 03:53 04/23/25 04/23/25 04/23/25 06:59 14:59 22:59 Intake Total 360 / 360 Output Total 725 / 1125 1200 / 1200 Balance -725 / 315 -840 / -840 Weight last 48 hrs Weight 128.231 kg Weight 125.69 kg Physical Exam 2 Narrative: General: No acute distress, AO x3 HEENT: PERRLA, pupils bilaterally equal and reactive, pallors not present Chest: Normal vesicular breath sounds, no added sounds, equal good air entry bilaterally CVS: S1-S2 regular, no murmurs, no tachycardia, no gallops, no rubs Abdomen: Soft, nontender, no organomegaly, bowel sounds present Neuro: No focal deficits, no facial deformity, AO x3, power 5/5 in all limbs Data 04/21/25 05:00 04/23/25 04:45 A&P Assessment and plan (1) Acute respiratory failure with hypoxia and hypercapnia: ABG on admission pH 7.34 pCO2 76.5 PO2 82.7 04/17/2025. Patient's airway is Mallampati 3. He is morbidly obese has cardiomegaly from history of alcohol abuse and more recently methamphetamine abuse. Echocardiogram has been done. I think he has multifactorial CO2 retention from COPD, sleep apnea, possibly drug- induced delirium. Patient is doing okay now on judicious use of oxygen to keep O2 sats in the 90 range. He received DuoNebs just before I arrived. Echocardiogram report is pending. Patient is chronically on oxygen at home. Outpatient medication regimen includes Xanax 1 mg 3-4 times a day, carbidopa levodopa, hydrocodone 10?3 25 1 p.o. every 4 hours as needed pain, Cymbalta, gabapentin to name the sedating meds. He is also on furosemide and carvedilol presumably for heart failure. pounds His weight has been documented as 127.4 kg down to 125.69 kg. Changed to oral furosemide 40 mg daily from 40 mg IV furosemide twice a day. Decrease potassium replacement. Repeat BMP in the morning (2) Right humeral fracture: Reviewed orthopedic note, discussed with orthopedics. Follow-up in office in 2 weeks, wear sling in the meantime. Has worked with orthopedics. Quad cane provided. Has not managed well at home, family very concerned about him now having more difficulty with arm fracture, with requirement for continuous oxygen. Pending level 2 approval for rehabilitation at SNF. (3) Methamphetamine abuse: Discussed need to stop methamphetamine use due to cardiomegaly and presumably heart failure. Echo showed preserved LVEF of 60% (4) CHF (congestive heart failure): Will resume carvedilol. Heart rate is pretty slow already at 60-67 so we will start at 6.25 mg twice a day instead of the 25 mg twice a day that he takes at home Seems like this will be manageable with preserved EF. Start losartan for blood pressure (5) DEISI (obstructive sleep apnea): Continue with BiPAP and urged patient to use his CPAP at home (6) Morbid obesity: Carb controlled weight loss diet 2000 quique daily. Need for weight loss was discussed with the patient as he has heart failure Plan Patient spoke with his and brother about his methamphetamine use as well as 's methamphetamine use. They are going to try and get clean. Brother is an RN was on speaker phone with us today and is supportive April 23, 2025 70-year-old male with a history of COPD and methamphetamine abuse, history of CHF, recent humeral fracture, presented to the hospital with respiratory distress and was found to have hypercapnic respiratory failure. He is currently on treatment for COPD exacerbation. He is noted to be an increased fall risk and has been deemed to be unsafe to live alone. Currently pending a level 2 for transition to SNF. Discontinue Kendall catheterization today. Discontinue ceftriaxone as completed a 6-day course. Continue Lasix 40 mg p.o. daily. Clinically euvolemic. Taper methylprednisolone 20 IV every 8 hours to prednisone orally. PDMP PDMP Reviewed: Not Reviewed Attestations 2 Medical Necessity Statement*: Awaiting appropriate disposition planning Coding Level of Care Code Acute Code for Chg Fwd Diagnoses Acute respiratory failure with hypoxia and hypercapnia J96.01; J96.02 Other closed nondisplaced fracture of proximal end of right humerus, initial encounter S42.294A Encounter type: initial encounter Humerus Location: proximal Fracture type: closed Fracture morphology: other fracture Fracture alignment: nondisplaced Methamphetamine abuse F15.10 CHF (congestive heart failure) I50.9 DEISI (obstructive sleep apnea) G47.33 Morbid obesity E66.01
[2025-04-23 15:21] VITALS: BP 155/80; PULSE 58; RESP 16; TEMP 36.4; O2SAT 97
[2025-04-23] MEDS: enoxaparin 40 mg/0.4 mL Syringe SUBCUT (16:36)
[2025-04-23] MEDS: predniSONE 20 mg Tablet 40 MG PO (17:41)
[2025-04-23 20:00] VITALS: BP 129/78; PULSE 61; RESP 15; RESP 20; TEMP 36.6; O2SAT 95
--- NOTE | 2025-04-23 21:35 | PC.NURSE ---
patient in bed with eyes open. this nurse in room for nursing shift assessment, patient lung sounds diminished front bilateral upper and lower lobes, patient has expiratory wheezes posterior bilateral upper and lower. patient refused breathing treatment at this time. patient refuses to let nurse take chaudhry catheter out, patient states if you stop my lasix i will let you take out my catheter nurse responds with i can ask the dr but i doubt he will agree to stop your lasix on count of your edema. nurse educated patient on fluid retention and the importance of medicine compliance.
[2025-04-24] VITALS (7 sets, daily range): BP systolic 142–150; BP diastolic 73–82; PULSE 51–64; RESP 17–20; TEMP 36.3–36.7; O2SAT 85–97
[2025-04-24] MEDS: duloxetine 30 mg Capsule PO (05:57)
[2025-04-24] MEDS: HYDROcodone-acetaminophen 10-325 mg Tablet 1 TAB PO (05:57)
[2025-04-24 06:20] LABS: Basophils % 0.2 %; Hematocrit 47.2 % (37-53); Lymphocytes # 0.4 10^3/uL (0.8-4.8); Lymphocytes % 3.2 %; Mean Corpuscular HGB Conc 30.3 g/dL (30-55); Mean Corpuscular Hemoglobin 30.6 pg (27-33); Mean Corpuscular Volume 101.1 fl (82-101); Mean Platelet Volume 10.8 fL (7.4-10.4); Monocytes # 0.9 10^3/uL (0.2-0.9); Monocytes % 6.8 %; Neutrophils # 11.67 10^3/uL (1.8-7.7); Neutrophils % 88.5 %; Nucleated Red Blood Cells % 0 %; Platelet Count 178 10^3/cmm (157-399); Red Blood Count 4.67 10^6/uL (3.85-5.65); White Blood Count 13.17 10^3/uL (3.29-11.43)
[2025-04-24 06:40] LABS: Alanine Aminotransferase 36 U/L (0-41); Albumin Level 3.1 g/dL (3.5-5.2); Alkaline Phosphatase 84 U/L (40-130); Anion Gap 8.8 (5-19); Aspartate Amino Transferase 15 U/L (0-40); Blood Urea Nitrogen 33 mg/dL (8-23); Calcium 8.8 mg/dL (8.5-10.5); Carbon Dioxide 38 mmol/L (22-29); Chloride 96 mmol/L (98-107); Creatinine Clr Calc Pharmacy 111.9655; Globulin 2.8 g/dL (1.3-4.6); Glucose 164 mg/dL (65-115); Osmolality Calculated 297 mOsm/kg (285-295); Potassium 4.8 mmol/L (3.5-5.1); Sodium 138 mmol/L (136-145); Total Bilirubin 0.4 mg/dL (0.15-1.2); Total Protein 5.9 g/dL (6.6-8.7)
[2025-04-24] MEDS: potassium chloride ER 20 mEq Tablet 10 MEQ PO (08:18)
[2025-04-24] MEDS: gabapentin 100 mg Capsule PO (08:18)
[2025-04-24] MEDS: FUROsemide 40 mg Tablet PO (08:18)
[2025-04-24] MEDS: aspirin 81 mg EC Tablet PO (08:18)
[2025-04-24] MEDS: predniSONE 20 mg Tablet 40 MG PO (08:18)
[2025-04-24] MEDS: spironolactone 25 mg Tablet PO (08:18)
[2025-04-24] MEDS: amlodipine 5 mg Tablet PO (08:18)
[2025-04-24] MEDS: tamsulosin 0.4 mg Capsule PO (08:19)
[2025-04-24] MEDS: pantoprazole DR 40 mg Tablet PO (08:19)
[2025-04-24] MEDS: carvedilol 6.25 mg Tablet PO (08:19)
[2025-04-24] MEDS: lisinopril 20 mg Tablet PO (08:19)
[2025-04-24] MEDS: ipratropium-albuterol 3 mL Neb INHALATION (09:48)
--- NOTE | 2025-04-24 11:43 | P.DS_ITS ---
Discharge Providers Date of Admission: 04/17/25 10:09 Date of Discharge: April 24, 2025 Attending Provider at Admission: Leonidas Sotelo Attending Provider at Discharge: Viky Daugherty MD Primary Care Provider: Nina Stokes MD Diagnoses at Discharge Discharge Diagnosis (1) Acute respiratory failure with hypoxia and hypercapnia: Status: Acute (2) Right humeral fracture: Status: Acute Qualifiers: Encounter type: initial encounter Humerus Location: proximal Fracture type: closed Fracture morphology: other fracture Fracture alignment: nondisplaced Qualified Code(s): S42.294A - Other nondisplaced fracture of upper end of right humerus, initial encounter for closed fracture (3) Methamphetamine abuse: Status: Acute (4) CHF (congestive heart failure): Status: Acute (5) DEISI (obstructive sleep apnea): Status: Acute (6) Morbid obesity: Status: Acute Reason for Visit Reason for Visit: Fall, RT Arm Pain Hospital Course Hospital Course 70-year-old male?with ongoing methamphetamines abuse, ?history of COPD and congestive heart failure presented after a recent fall 8 days ago resulting in arm pain and a confirmed broken humerus. The patient was recently released from a hospital in [place] and reportedly has been disoriented since then. In ED here his initial complaint was arm pain but he was found to be short of breath and retaining carbon dioxide, with evidence of exacerbation of COPD and congestive heart failure. The patient uses a nasal cannula for oxygen, typically around the clock, and has a portable oxygen unit. He has a history of being non-cooperative and sometimes leaves the hospital against medical advice in the past. He has not been adherent with home respiratory therapies (CPAP/BiPAP) and possibly medications per H&P on admission. In ER he was started on BiPAP support after findings of lethargy, confusion and hypercapneic respiratory acidosis. He received iv glucocorticolids and scheduled nebulization. Also received iv diuretics. He was seen by orthopedics, no surgical intervntion was indicated. to F/up as outpatient. Echocardiogram showed Normal left ventricular size, systolic function and wall thickness, with no regional wall motion abnormalities. Left ventricular ejection fraction is estimated at 60 %. Grade I/IV diastolic dysfunction. Patient improved with these interventions and eventually was able to be transitioned to oral diuretics and oral steroids. He is currently awake alert and oriented. He was evaluated by physical therapy and has done well during the course of admission. He was independent as of 04/23 with supine to sit, sit to supine, sit to stand. He ambulated 180 feet with standby assistance. He did exhibit some decreased endurance however overall was improved compared to admission. shelter versus home health was considered. Patient refused removal of her Kendall catheter in spite of 3 attempts to do the same as he insists that he is unable to easily get in and out of bed due to his right arm fracture. We encouraged getting out of bed using the left side, encouraged him to use diaper if he is worried about incontinence and urgency, however he is not interested in this intervention. He stated he understands the risk of UTI with chronic indwelling Kendall but still refuses removal of the Kendall catheter. Since he had demonstrated not managing well at home with quick deterioration after discharge, SNF placement was considered after discussion with family on 04/22/2025. I had a message for a peer to peer call to be completed at noon today and have called twice this morning at 8 AM and then again at 9:30 AM on the number provided to me by case management that is [phone], however have received voicemail both times. I have left messages with my callback number however I am yet to hear from them. In the interim since patient is otherwise clinically improved, doing well from a PT standpoint since he ambulated 180 feet without any assistive devices, has in- home services at home for support, has oxygen already set up, lives with his and not alone, he is considered safe for discharge to home today. He is recommended to comply with medications as ordered at discharge. Continue to use oxygen as ordered. Home O2 eval has been completed prior to discharge today again. Recommend follow-up with PCP to remove Kendall catheter. Counseled regarding high risk of UTI with his continued refusal to remove Kendall catheter. Physical Exam Narrative: General: No acute distress, AO x3 HEENT: PERRLA, pupils bilaterally equal and reactive, pallors not present Chest: Normal vesicular breath sounds, no added sounds, equal good air entry bilaterally CVS: S1-S2 regular, no murmurs, no tachycardia, no gallops, no rubs Abdomen: Soft, nontender, no organomegaly, bowel sounds present Neuro: No focal deficits, no facial deformity, AO x3, power 5/5 in all limbs Discharge Data Studies Completed and Pending Completed Studies During Hospitalization Category Date Time Status XR chest 1V portable [id number] Stat Exams 04/17/25 08:28 [place] [id number] Stat Exams 04/17/25 08:28 Completed CV. echo complete* [id number] Routine Ultrasound 04/21/25 19:13 Completed Pending at discharge Category Date Time Status Sputum Culture and Gram Stain Routine Lab 04/17/25 16:11 Uncollected Radiology Impressions Chest X-Ray 04/17/25 08:28 IMPRESSION: 1. Right humeral head and neck fracture. 2. Increased moderate cardiomegaly. 3. Slightly increased pulmonary vascular congestion with diffuse bilateral pulmonary edema. Humerus X-Ray 04/17/25 08:28 IMPRESSION: Comminuted, impacted, and displaced fracture right humeral head and neck. Slightly increased displacement. Laboratory Results WBC 13.17 10^3/uL (3.29-11.43) H 04/24/25 05:30 RBC 4.67 10^6/uL (3.85-5.65) 04/24/25 05:30 Hgb 14.30 g/dL (11.27-16.99) 04/24/25 05:30 Hct 47.2 % (37-53) 04/24/25 05:30 MCV 101.1 fl (82-101) H 04/24/25 05:30 MCH 30.6 pg (27-33) 04/24/25 05:30 MCHC 30.3 g/dL (30-55) 04/24/25 05:30 RDW 14.0 % (12.1-15.1) 04/24/25 05:30 Plt Count 178 10^3/cmm (157-399) 04/24/25 05:30 MPV 10.8 fL (7.4-10.4) H 04/24/25 05:30 Neut % (Auto) 88.5 % 04/24/25 05:30 Lymph % (Auto) 3.2 % 04/24/25 05:30 [place] % (Auto) 6.8 % 04/24/25 05:30 Eos % (Auto) 0.0 % 04/24/25 05:30 Baso % (Auto) 0.2 % 04/24/25 05:30 Neut # (Auto) 11.67 10^3/uL (1.8-7.7) H 04/24/25 05:30 Lymph # (Auto) 0.4 10^3/uL (0.8-4.8) L 04/24/25 05:30 [place] # (Auto) 0.9 10^3/uL (0.2-0.9) 04/24/25 05:30 Eos # (Auto) 0.0 10^3/uL (0.0-0.8) 04/24/25 05:30 Baso # (Auto) 0.0 10^3/uL (0.0-0.1) 04/24/25 05:30 Nucleated RBC % (auto) 0 % 04/24/25 05:30 Nucleated RBCs # 0.0 /100WBC 04/24/25 05:30 Specimen Type Arterial 04/17/25 08:54 Sample Site Radial, left 04/17/25 08:54 ABG pH 7.34 (7.35-7.45) L 04/17/25 08:54 ABG pCO2 76.5 mmHg (35-45) H* 04/17/25 08:54 ABG pO2 82.7 mmHg (80.0-100.0) 04/17/25 08:54 ABG PO2/FiO2 Ratio 295 04/17/25 08:54 ABG HCO3 41.3 mmol/L (22-26) H 04/17/25 08:54 ABG O2 Saturation 96.2 04/17/25 08:54 ABG Base Excess 11.8 mmol/L (-2.0-2.0) H 04/17/25 08:54 Eliud Test Pos 04/17/25 08:54 A-a O2 Gradient 2.9 mmHg (5-10) L 04/17/25 08:54 Hematocrit 44.1 % (42-52) 04/17/25 08:54 Hgb O2 Saturation 93.9 % (95-100) L 04/17/25 08:54 Carboxyhemoglobin 2.4 %THgb (0.4-20.1) 04/17/25 08:54 Methemoglobin 0.0 % (0.4-1.5) L 04/17/25 08:54 Total Hemoglobin 14.4 g/dL (14-18) 04/17/25 08:54 Sodium 140.0 mmol/L (131-143) 04/17/25 08:54 Potassium 4.4 mmol/L (3.5-5.0) 04/17/25 08:54 Glucose 100.0 mg/dL (70-115) 04/17/25 08:54 Ionized Calcium 1.2 mmol/L (1.1-1.4) 04/17/25 08:54 O2 Delivery Device Nc 04/17/25 08:54 O2 Liters/Min 2.0 % 04/17/25 08:54 FiO2 28.0 % 04/17/25 08:54 Products Mechanical Design Engineer ID [id number] 04/17/25 08:54 Sodium 138 mmol/L (136-145) 04/24/25 05:30 Potassium 4.8 mmol/L (3.5-5.1) 04/24/25 05:30 Chloride 96 mmol/L (98-107) L 04/24/25 05:30 Carbon Dioxide 38 mmol/L (22-29) H 04/24/25 05:30 Anion Gap 8.8 (5-19) 04/24/25 05:30 BUN 33 mg/dL (8-23) H 04/24/25 05:30 Creatinine 0.6 mg/dL (0.7-1.2) L 04/24/25 05:30 GFR Calculation 134.0 mL/min (90-130) H 04/24/25 05:30 Glucose 164 mg/dL (65-115) H 04/24/25 05:30 Calculated Osmolality 297 mOsm/kg (285-295) H 04/24/25 05:30 Calcium 8.8 mg/dL (8.5-10.5) 04/24/25 05:30 Magnesium 2.2 mg/dL (1.7-2.3) 04/23/25 04:45 Total Bilirubin 0.4 mg/dL (0.15-1.2) 04/24/25 05:30 AST 15 U/L (0-40) 04/24/25 05:30 ALT 36 U/L (0-41) 04/24/25 05:30 Alkaline Phosphatase 84 U/L (40-130) 04/24/25 05:30 Creatine Kinase 45 U/L (39-308) 04/17/25 08:28 Troponin T Baseline 17 ng/L (0-15) H 04/17/25 08:28 Troponin T 120 Minute 15.71 ng/L (0-15) H 04/17/25 10:36 Delta Troponin T -1.29 ABS# (0-10) L 04/17/25 10:36 Troponin T Hi Sens 6Hr 12.09 ng/L (0-15) 04/17/25 14:49 Troponin T Hi Sens 6Hr Delta -4.91 ng/L (0-12) L 04/17/25 14:49 Total Protein 5.9 g/dL (6.6-8.7) L 04/24/25 05:30 Albumin 3.1 g/dL (3.5-5.2) L 04/24/25 05:30 Globulin 2.8 g/dL (1.3-4.6) 04/24/25 05:30 Urine Color Dark yellow (Yellow) A 04/17/25 09:00 Urine Appearance Clear (CLEAR) 04/17/25 09:00 Urine pH 7.5 (5-7) 04/17/25 09:00 Ur Specific [place] 1.027 (1.005-1.030) 04/17/25 09:00 Urine Protein 1+ (Negative) A 04/17/25 09:00 Urine Glucose (UA) Negative (Normal) 04/17/25 09:00 Urine Ketones 2+ (Negative) H 04/17/25 09:00 Urine Blood Negative (Negative) 04/17/25 09:00 Urine Nitrate Negative (Negative) 04/17/25 09:00 Urine Bilirubin Negative (Negative) 04/17/25 09:00 Urine Urobilinogen 1.0 mg/dL (Negative) 04/17/25 09:00 Ur Leukocyte Esterase 1+ (Negative) A 04/17/25 09:00 Urine RBC 0-2 /hpf (0-2) 04/17/25 09:00 Urine WBC 21-50 /hpf (0-5) H 04/17/25 09:00 Ur Squamous Epith Cells 0-5 /hpf (0-5) 04/17/25 09:00 Amorphous Sediment Not Reportable 04/17/25 09:00 Urine Bacteria None seen /hpf (NONE) 04/17/25 09:00 Hyaline Casts 0-4 /lpf H 04/17/25 09:00 Urine Opiates Screen Positive ng/mL (Negative) H 04/17/25 09:00 Ur Barbiturates Screen Negative ng/mL (Negative) 04/17/25 09:00 Ur Phencyclidine Scrn Negative ng/mL (Negative) 04/17/25 09:00 Ur Amphetamines Screen Positive ng/mL (Negative) H 04/17/25 09:00 U Benzodiazepines Scrn Negative ng/mL (Negative) 04/17/25 09:00 Urine Cocaine Screen Negative ng/mL (Negative) 04/17/25 09:00 U Marijuana (THC) Screen Negative ng/mL (Negative) 04/17/25 09:00 Vitals Last Vital Signs Temp 98.0 F 04/24/25 11:21 Pulse 62 04/24/25 11:21 Resp 20 H 04/24/25 11:21 BP 142/73 04/24/25 11:21 Pulse Ox 85 L 04/24/25 11:38 O2 Del Method Nasal Cannula 04/24/25 11:21 O2 Flow Rate 3 04/24/25 11:38 FiO2 35 04/18/25 03:53 Discharge Plan Discharge Patient Disposition: Home Condition: Stable Prescriptions: New prednisone 20 mg tablet 20 mg PO DAILY 5 Days Qty: 5 0RF cefdinir 300 mg capsule 300 mg PO BID 5 Days Qty: 10 0RF Continued aspirin 81 mg tablet,delayed release (DR/EC) 81 mg PO DAILY ascorbic acid (vitamin C) 1,000 mg tablet 1,000 mg PO DAILY furosemide 40 mg tablet 40 mg PO BID lisinopril 20 mg tablet 20 mg PO DAILY carbidopa-levodopa [Sinemet] 10-100 mg tablet 1 tab PO DAILY omeprazole 20 mg capsule,delayed release(DR/EC) 20 mg PO DAILY albuterol sulfate [Ventolin HFA] 90 mcg/actuation HFA aerosol inhaler 2 puff INHALATION Q6H PRN (Reason: Shortness Of Breath) carvedilol 25 mg tablet 25 mg PO BID Rx Instructions: must administer with a meal/food potassium chloride 10 mEq capsule, extended release 10 meq PO DAILY tamsulosin 0.4 mg capsule 0.4 mg PO DAILY duloxetine [Cymbalta] 60 mg capsule,delayed release(DR/EC) 60 mg PO .AM Qty: 30 5RF Rx Instructions: along with 30mg to=90mg total. duloxetine [Cymbalta] 30 mg capsule,delayed release(DR/EC) 30 mg PO .AM Qty: 30 5RF Rx Instructions: along with 60mg to=90mg total. alprazolam [Xanax] 1 mg tablet 1 mg PO .3-4XDAILY PRN (Reason: anxiety) gabapentin 100 mg capsule 100 mg PO DAILY clobetasol 0.05 % solution See Rx Instructions .ROUTE .COMPLEX Rx Instructions: APPLY TOPICALLY TO THE AFFECTED AREA(S) TWICE DAILY naloxone 4 mg/actuation spray,non-aerosol See Rx Instructions .ROUTE .COMPLEX Rx Instructions: CALL 911. ADMINISTER A SINGLE SPRAY OF NARCAN IN ONE NOSTRIL. REPEAT EVERY THREE MINUTES NEEDED IF NO OR MINIMAL RESPONSE. Changed hydrocodone-acetaminophen 10-325 mg tablet 0.5 tab PO Q4H PRN (Reason: Pain, Moderate) Qty: 0.1 0RF Rx Instructions: order change only - decrease to 0.5 tab Discharge Orders: Discharge Order (Routine); Ordered 04/24/25 Ordered By: Viky Daugherty Referrals: Rich Hinton DO [Physician, Orthopedics] - 05/01/25 2:30 pm Nina Stokes MD [Primary Care Provider, [facility]] - 04/25/25 12:20 pm Referral Note: Appointment with [facility] [phone] Discharge Diet: Cardiac Discharge Activity: As per PT/OT instructions and Oxygen as instructed Patient Instructions: Prednisone (By mouth), Cefdinir (By mouth), Using Oxygen at Home (GEN), Methamphetamine Use Disorder (GEN), Hypoxia (GEN) Activity Restrictions/Additional Instructions: Follow-up Ortho clinic 2 weeks for broken bone in your right upper arm. Sling for comfort Please follow-up with your primary doctor for assessment after COPD exacerbation. Continue oxygen at home, target oxygen saturation 88-92%. Avoid overly high ox ygen saturation (above 92%) or oxygen saturations did not drop below 88%. [place] high oxygen saturation can lead to carbon dioxide retention. Please exercise caution with hydrocodone, take no more than half a tablet at a time and avoid if possible due to risk of respiratory depression and carbon dioxide retention. Take only minimal dose necessary, avoid long-term use if possible, discontinue once no longer necessary. Work with your primary doctor to wean off if needed. Avoid any methamphetamine use due to discussed risks. Discharge Attestations Time Spent in Discharge Care*: greater than 30 min Quality Metrics Clinical Quality Measures [ No reported AMI, CVA or VTE this stay] Coding Level of Care Code Acute Code for Chg Fwd Diagnoses Acute respiratory failure with hypoxia and hypercapnia J96.01; J96.02 Other closed nondisplaced fracture of proximal end of right humerus, initial encounter S42.294A Encounter type: initial encounter Humerus Location: proximal Fracture type: closed Fracture morphology: other fracture Fracture alignment: nondisplaced Methamphetamine abuse F15.10 CHF (congestive heart failure) I50.9 DEISI (obstructive sleep apnea) G47.33 Morbid obesity E66.01
--- NOTE | 2025-04-24 13:26 | PC.NURSE ---
Arrangements for ride are the reason this discharge was late, also had to get O2 tank d/t pt did not have his in room.
== END 2025-04-24 13:25 | disposition home or self-care (01) | DRG 291 ==
LOC: ER 08:36 → ER IP 10:09 → ICU 15:32 → MEDSURG 04-19 21:22
PROVIDERS: Internal Medicine; Admitting Provider Internal Medicine; Emergency Provider Family Medicine; PCP Family Medicine; Visit Provider Student in an Organized Health Care Education/Training Program
DX: I50.33 Acute on chronic diastolic (congestive) heart failure (principal); G93.41 Metabolic encephalopathy; J96.01 Acute respiratory failure with hypoxia; J96.02 Acute respiratory failure with hypercapnia; S42.201K Unspecified fracture of upper end of right humerus, subsequent encounter for fracture with nonunion; Z68.42 Body mass index [BMI] 45.0-49.9, adult; J44.1 Chronic obstructive pulmonary disease with (acute) exacerbation; F33.1 Major depressive disorder, recurrent, moderate; W19.XXXD Unspecified fall, subsequent encounter; F15.10 Other stimulant abuse, uncomplicated; G47.33 Obstructive sleep apnea (adult) (pediatric); E66.01 Morbid (severe) obesity due to excess calories; R33.9 Retention of urine, unspecified; I25.10 Atherosclerotic heart disease of native coronary artery without angina pectoris; G25.81 Restless legs syndrome; F41.1 Generalized anxiety disorder; I45.10 Unspecified right bundle-branch block; Z99.81 Dependence on supplemental oxygen; Z87.891 Personal history of nicotine dependence; Z91.199 Patient's noncompliance with other medical treatment and regimen due to unspecified reason
CPT/HCPCS: 36415; 36600; 71045; 73060; 80048; 80051; 80053; 80306; 81001; 82330; 82550; 82805; 83735; 84484; 85025; 87086; 93005; 93306; 94640; 94660; 94760; 96372; 96374; 96375; 96376; 97110; 97116; 97162; 97167; 97530; 97535; 99291; J0696; J1650; J1938; J2060; J2919; J7512; J9999

== ENCOUNTER → 2025-05-10 15:32 | Outpatient (BNVA) | payer MEDICARE, MEDICAID, SELFPAY | PROVIDERS: PCP Family Medicine; Visit Provider Orthopaedic Surgery | DX: S42.294A Other nondisplaced fracture of upper end of right humerus, initial encounter for closed fracture (principal); X58.XXXA Exposure to other specified factors, initial encounter | CPT/HCPCS: 73030; 99203 ==

== ENCOUNTER → 2025-06-07 15:32 | Outpatient (BNVA) | payer MEDICARE, MEDICAID, SELFPAY | PROVIDERS: PCP Family Medicine; Visit Provider Orthopaedic Surgery | DX: S42.291D Other displaced fracture of upper end of right humerus, subsequent encounter for fracture with routine healing (principal); X58.XXXD Exposure to other specified factors, subsequent encounter; Z99.81 Dependence on supplemental oxygen; M79.631 Pain in right forearm | CPT/HCPCS: 73060; 73090; 99213 ==